=== PATIENT | male | born 2000 | race Caucasian/White ===

== ENCOUNTER 2019-09-10 21:28 | Inpatient (IN) | payer BC, OTHER ==
[2019-09-10 22:24] LABS: Hematocrit 57 % (42-52); Hemoglobin 18.8 g/dL (14.0-18.0); Mean Corpuscular HGB Conc 33 g/dL (31-36); Mean Corpuscular Hemoglobin 30 pg (27-31); Mean Corpuscular Volume 92 fL (80-94); Platelet Count 399 10^3/uL (150-450); Red Blood Count 6.19 10^6 /uL (4.18-5.48); Red Cell Distribution Width 14 % (10-15); White Blood Count 31.3 10^3/uL (3.5-10.8)
[2019-09-10 22:39] LABS: ABS Basophils 0.3 10^3/ul (0-0.2); ABS Lymphocytes 1.6 10^3/ul (1.0-4.8); ABS Monocytes 0.7 10^3/ul (0-0.8); ABS Neutrophils 28.7 10^3/ul (1.5-7.7); Eosinophil % 0.1 %; Lymphocyte % 5.1 %
[2019-09-10 22:42] LABS: ALT 17 U/L (7-52); Albumin 5.3 g/dL (3.2-5.2); Albumin/Globulin Ratio 1.6 (1-3); Alkaline Phosphatase 147 U/L (34-104); BUN/Creatinine Ratio 16.6 (8-20); Blood Urea Nitrogen 30 mg/dL (6-24); C Reactive Protein 2.35 mg/L (<8.01); Calcium 10.2 mg/dL (8.6-10.3); Chloride 93 mmol/L (101-111); EGFR African American 58.7 (>60); EGFR Non-African American 48.5 (>60); Globulin 3.3 g/dL (2-4); Glucose 498 mg/dL (70-100); Sodium 132 mmol/L (135-145); Total Protein 8.6 g/dL (6.4-8.9)
[2019-09-10 22:44] LABS: Anion Gap 30 mmol/L (2-11); CO2 Carbon Dioxide 9 mmol/L (22-32)
[2019-09-10] MEDS ORDERED: NS 0.9% 1000 ML** 1,000 ML IV ONE ×2 (23:26)
--- NOTE | 2019-09-10 23:33 | ED ---
HPI Diabetic - HPI Summary HPI Summary: Patient is a 18 year-old male presenting [facility] accompanied by father with a chief complaint of hyperglycemia. He has a history of type I diabetes with admission to [facility] 02/18/2019 with similar presentation for DKA. He endorses nausea, vomiting, and decreased oral intake. He denies diarrhea, fevers, and cough. On his way into the ED, he had 11.16 units of Humalog, administered through his pump around 2030. Symptoms rated 6/10 in severity. He had Zofran at 1700. Insulin pump removed at time of initial assessment. Past medical history includes collarbone fracture with screw/plate placement. Family history of diabetes. Nonsmoker, no alcohol use, no substance use. Medications reviewed. Allergies noted. - History Of Current Complaint Chief Complaint: EDDiabeticProb Time Seen by Provider: 09/10/19 23:25 Hx Obtained From: Patient Onset/Duration: Still Present Severity Initially: Moderate Severity Currently: Moderate Character: Alert Aggravating: Nothing Alleviating: Nothing - Insulin used Associated Signs & Symptoms: Nausea, Vomiting Related History: DM I, Insulin Pump - Allergies/Home Medications Allergies/Adverse Reactions: Allergies Allergy/AdvReac Type Severity Reaction Status Date / Time No Known Allergies Allergy Unverified 02/18/19 07:44 Home Medications: Home Medications zzInsulin inj LISPRO* [zzHumaLOG inj*] 0 units SUBCUT ACHS 11/04/13 [History Confirmed 02/18/19] Ibuprofen TAB* [Motrin TAB* 600 MG] 600 mg PO Q6H PRN #28 tab 02/11/16 [Rx Confirmed 02/18/19] Ondansetron HCl [Zofran] 4 mg PO Q6HR PRN #10 tablet 02/20/19 [Rx] PMH/Surg Hx/FS Hx/Imm Hx Endocrine/Hematology History: Reports: Hx Diabetes - TYPE 1 Denies: Hx Thyroid Disease Cardiovascular History: Denies: Hx Congestive Heart Failure, Hx Hypertension Respiratory History: Denies: Hx Asthma, Hx Chronic Obstructive Pulmonary Disease (COPD) GI History: Denies: Hx Ulcer History: Denies: Hx Renal Disease Musculoskeletal History: Reports: Hx Orthopedic Injury - L collar bone Sensory History: Denies: Hx Contacts or Glasses, Hx Hearing Aid Opthamlomology History: Denies: Hx Contacts or Glasses - Surgical History Surgical History: None Surgery Procedure, Year, and Place: none Infectious Disease History: No Infectious Disease History: Denies: Hx Clostridium Difficile, Hx Hepatitis, Hx Human Immunodeficiency Virus (HIV), Traveled Outside the [place] in Last 30 Days - Family History Known Family History: Positive: Diabetes - type I in father, aunt, grandmother, Other - Father has hx of fractured clavicle - Social History Alcohol Use: None Hx Substance Use: No Substance Use Type: Reports: None Hx Tobacco Use: No Smoking Status (MU): Never Smoked Tobacco - Additional Comments History Additional Comments: type I diabetes, family history of diabetes Review of Systems - ROS Summary Review of Systems Summary: Home Medications Medication Instructions Recorded Confirmed Type zzInsulin inj LISPRO* [zzHumaLOG 0 units SUBCUT ACHS 11/04/13 02/18/19 History inj*] Ibuprofen TAB* [Motrin TAB* 600 MG] 600 mg PO Q6H PRN #28 tab 02/11/16 02/18/19 Rx Ondansetron HCl [Zofran] 4 mg PO Q6HR PRN #10 tablet 02/20/19 Rx Negative: Fever Negative: Cough Positive: Vomiting, Nausea, Other - decreased PO intake. Negative: Diarrhea All Other Systems Reviewed And Are Negative: Yes Physical Exam - Summary Physical Exam Summary: General: Moderately ill-appearing, Well-developed, Very thin male. No acute distress. HEENT: Normocephalic, Atraumatic. Eyes: Conjuctiva normal, PERRL. Oropharynx: Clear, dry mucous membranes, (-) exudates. Neck: Soft, FROM, (-) lymphadenopathy, (-) thyromegaly, (-) JVD. Cardiovascular: Normal sinus rhythm, (-) murmur. Lungs: Clear to auscultation bilaterally (-) wheezes, (-) rales, (-) rhonchi. Abdomen: Soft, non-tender, non-distended, (-) organomegaly, normal bowel sounds. Back: (-) CVA tenderness Extremities: No edema. Skin: Warm, dry, (-) rash. Neuro: Alert and oriented x3, moves all extremities equally. No ataxia. No gait disturbance. No sensory deficit. Normal strength, normal sensation. Psychiatric: Mood normal, affect is flat. Triage Information Reviewed: Yes Vital Signs On Initial Exam: Initial Vitals Temp Pulse Resp BP Pulse Ox 97.7 F 147 20 122/80 98 09/10/19 21:47 09/10/19 21:47 09/10/19 21:47 09/10/19 21:47 09/10/19 21:47 Vital Signs Reviewed: Yes Procedures - Sedation Patient Received Moderate/Deep Sedation with Procedure: No Diagnostics - Vital Signs Vital Signs Temp Pulse Resp BP Pulse Ox 09/10/19 21:47 97.7 F 147 20 122/80 98 - Laboratory Lab Results: Lab Results 09/10/19 09/10/19 09/10/19 Range/Units 22:16 22:17 22:17 WBC 31.3 H (3.5-10.8) 10^3/uL RBC 6.19 H (4.18-5.48) 10^6 /uL Hgb 18.8 H (14.0-18.0) g/dL Hct 57 H (42-52) % MCV 92 (80-94) fL MCH 30 (27-31) pg MCHC 33 (31-36) g/dL RDW 14 (10-15) % Plt Count 399 (150-450) 10^3/uL MPV 10.0 (7.4-10.4) fL Neut % (Auto) 91.5 % Lymph % (Auto) 5.1 % Hooker % (Auto) 2.4 % Eos % (Auto) 0.1 % Baso % (Auto) 0.9 % Absolute Neuts (auto) 28.7 H (1.5-7.7) 10^3/ul Absolute Lymphs (auto) 1.6 (1.0-4.8) 10^3/ul Absolute Monos (auto) 0.7 (0-0.8) 10^3/ul Absolute Eos (auto) 0.0 (0-0.6) 10^3/ul Absolute Basos (auto) 0.3 H (0-0.2) 10^3/ul Absolute Nucleated RBC 0.0 10^3/ul Immature Gran % 12.0 H (0-9) % Neutrophils % 78.0 % Band Neutrophils % 12.0 H (0-8) % Lymphocytes % 6.0 % Monocytes % 4.0 % Nucleated RBC % 0.0 Normal RBC Morphology Normal (Normal) VBG pH (7.32-7.43) VBG pCO2 (41-51) mmHg VBG pO2 (35-45) mmHg VBG HCO3 VBG O2 Saturation (70-80) % VBG Base Excess Sodium 132 L (135-145) mmol/L Potassium TNP Chloride 93 L (101-111) mmol/L Carbon Dioxide 9 L* (22-32) mmol/L Anion Gap 30 H (2-11) mmol/L BUN 30 H (6-24) mg/dL Creatinine 1.81 H (0.67-1.17) mg/dL Est GFR ( Amer) 58.7 (>60) Est GFR (Non-Af Amer) 48.5 (>60) BUN/Creatinine Ratio 16.6 (8-20) Glucose 498 H (70-100) mg/dL Lactic Acid 3.3 H* (0.5-2.0) mmol/L Calcium 10.2 (8.6-10.3) mg/dL Total Bilirubin 0.40 (0.2-1.0) mg/dL AST TNP ALT 17 (7-52) U/L Alkaline Phosphatase 147 H (34-104) U/L C-Reactive Protein 2.35 (<8.01) mg/L Total Protein 8.6 (6.4-8.9) g/dL Albumin 5.3 H (3.2-5.2) g/dL Globulin 3.3 (2-4) g/dL Albumin/Globulin Ratio 1.6 (1-3) // Range/Units 22:17 WBC (3.5-10.8) 10^3/uL RBC (4.18-5.48) 10^6 /uL Hgb (14.0-18.0) g/dL Hct (42-52) % MCV (80-94) fL MCH (27-31) pg MCHC (31-36) g/dL RDW (10-15) % Plt Count (150-450) 10^3/uL MPV (7.4-10.4) fL Neut % (Auto) % Lymph % (Auto) % Hooker % (Auto) % Eos % (Auto) % Baso % (Auto) % Absolute Neuts (auto) (1.5-7.7) 10^3/ul Absolute Lymphs (auto) (1.0-4.8) 10^3/ul Absolute Monos (auto) (0-0.8) 10^3/ul Absolute Eos (auto) (0-0.6) 10^3/ul Absolute Basos (auto) (0-0.2) 10^3/ul Absolute Nucleated RBC 10^3/ul Immature Gran % (0-9) % Neutrophils % % Band Neutrophils % (0-8) % Lymphocytes % % Monocytes % % Nucleated RBC % Normal RBC Morphology (Normal) VBG pH <7.00 L (7.32-7.43) VBG pCO2 35 L (41-51) mmHg VBG pO2 < 38.0 (35-45) mmHg VBG HCO3 TNP VBG O2 Saturation 60.5 L (70-80) % VBG Base Excess TNP Sodium (135-145) mmol/L Potassium Chloride (101-111) mmol/L Carbon Dioxide (22-32) mmol/L Anion Gap (2-11) mmol/L BUN (6-24) mg/dL Creatinine (0.67-1.17) mg/dL Est GFR ( Amer) (>60) Est GFR (Non-Af Amer) (>60) BUN/Creatinine Ratio (8-20) Glucose (70-100) mg/dL Lactic Acid (0.5-2.0) mmol/L Calcium (8.6-10.3) mg/dL Total Bilirubin (0.2-1.0) mg/dL AST ALT (7-52) U/L Alkaline Phosphatase (34-104) U/L C-Reactive Protein (<8.01) mg/L Total Protein (6.4-8.9) g/dL Albumin (3.2-5.2) g/dL Globulin (2-4) g/dL Albumin/Globulin Ratio (1-3) Result Diagrams: 09/10/19 22:17 09/11/19 01:00 Lab Statement: Any lab studies that have been ordered have been reviewed, and results considered in the medical decision making process. Re-Evaluation - Re-Evaluation First Eval Re-Evaluation Time: 00:00 Comment: Discussed results with patient. Nausea improved. Agreeable with admission plan. Diabetic Course/Dx - Course Course Of Treatment: 18-year-old male presents with vomiting. He states he is a type I diabetic. Started vomiting this morning and hasn't been able to keep anything down. Last gave himself insulin through his insulin pump en route. 11 units. Humalog. He is moderately ill-appearing upon arrival. He is dry appearing on physical. Tachycardic. His laboratories demonstrated multiple abnormalities including elevated white count. Elevated anion gap, glucose. Decreased pH. Patient given 2 L of IV fluids. When his potassium returns normal he is given regular insulin bolus and 6 units of regular insulin per hour drip. Referred to hospitalist for admission for DKA. - Diagnoses Provider Diagnoses: DKA (diabetic ketoacidoses) - Physician Notifications Discussed Care Of Patient With: Terrell Sheppard - hospitalist Time Discussed With Above Provider: 00:20 Instructed by Provider To: Other - I discussed the patients case with Dr. Sheppard, who accepts the patient for admission. Discharge ED - Sign-Out/Discharge Documenting (check all that apply): Patient Departure - Patient accepted for admission by Dr. Sheppard. - Discharge Plan Condition: Stable Disposition: ADMITTED TO [facility] Referrals: No Primary Care Phys,NOPCP [Primary Care Provider] - - Billing Disposition and Condition Condition: STABLE Disposition: Admitted to [facility] - Attestation Statements Document Initiated by Kimibe: Yes Documenting Scribe: Seema Osuna Provider For Whom Sherry is Documenting (Include Credential): Odalis Wright MD Scribnicholas Attestation: Seema Lockett, scribed for Odalis Wright MD on 09/11/19 at 0155. Scribe Documentation Reviewed: Yes Provider Attestation: The documentation as recorded by the Seema ellison accurately reflects the service I personally performed and the decisions made by me, Odalis Wright MD Status of Scribnicholas Document: Viewed
[2019-09-10] MEDS ORDERED: Ondansetron INJ* 2 MG/ML VIAL IV ONE (23:43)
[2019-09-10] MEDS ORDERED: Acetaminophen TAB* 325 MG PO ONE (23:50)
[2019-09-10 23:53] LABS: Potassium Redraw 6.3 mmol/L (3.5-5.0)
[2019-09-10] MEDS ORDERED: Insulin REGULAR(*) 1 UNITS UNIT IV PUSH ONE (23:53)
[2019-09-11] MEDS: Insulin Infusion 100unit/100mL 100 UNIT/100 ML BAG IV ONE ×2 (00:05→10:15)
[2019-09-11 01:19] LABS: Urine Appearance Cloudy; Urine Bilirubin Negative (Negative); Urine Blood 1+ (Negative); Urine Color Yellow; Urine Glucose 3+(>=500 mg/dL) (Negative); Urine Ketones 2+ (Negative); Urine Nitrite Negative (Negative); Urine Protein 1+(30 mg/dL) (Negative); Urine Urobilinogen Negative (Negative)
[2019-09-11 01:21] LABS: Urine Bacteria 1+ (Absent); Urine Red Blood Cell Trace(0-2/hpf) (Absent); Urine White Blood Cell Absent (Absent)
[2019-09-11 01:29] LABS: BUN/Creatinine Ratio 19.5 (8-20); Calcium 8.7 mg/dL (8.6-10.3); EGFR African American 87.6 (>60); EGFR Non-African American 72.4 (>60)
[2019-09-11 01:44] LABS: Potassium 4.7 mmol/L (3.5-5.0)
[2019-09-11] MEDS ORDERED: NS 0.9% 1000 ML** 1,000 ML IV SCH (02:00)
[2019-09-11] MEDS ORDERED: Acetaminophen TAB* 325 MG PO PRN (02:05)
[2019-09-11] MEDS: D5W 1/2 NS 1000 ML BAG* 1,000 ML IV SCH ×2 (03:30→12:12)
[2019-09-11 05:12] LABS: ABS Basophils 0.2 10^3/ul (0-0.2); ABS Eosinophils 0.1 10^3/ul (0-0.6); ABS Lymphocytes 2.2 10^3/ul (1.0-4.8); ABS Monocytes 1.1 10^3/ul (0-0.8); ABS Neutrophils 17.9 10^3/ul (1.5-7.7); Eosinophil % 0.5 %; Hematocrit 46 % (42-52); Hemoglobin 16.1 g/dL (14.0-18.0); Lymphocyte % 10.4 %; Mean Corpuscular HGB Conc 35 g/dL (31-36); Mean Corpuscular Hemoglobin 31 pg (27-31); Mean Corpuscular Volume 88 fL (80-94); Mean Platelet Volume 9.5 fL (7.4-10.4); Platelet Count 304 10^3/uL (150-450); Red Blood Count 5.22 10^6 /uL (4.18-5.48); Red Cell Distribution Width 14 % (10-15); White Blood Count 21.5 10^3/uL (3.5-10.8)
[2019-09-11 05:43] LABS: BUN/Creatinine Ratio 20.4 (8-20); Calcium 8.7 mg/dL (8.6-10.3); EGFR African American 112.6 (>60); Potassium 4.2 mmol/L (3.5-5.0)
--- NOTE | 2019-09-11 05:51 | HP ---
HISTORY AND PHYSICAL: DATE OF ADMISSION: 09/11/19 HISTORY OF PRESENT ILLNESS: This is a 18-year-old male with history of type 1 diabetes presented to the ED with the father with chief complaint of nausea, vomiting excessively and hyperglycemia. The patient has a history of type 1 diabetes and on insulin pump. His last admission was 02/18/19 with similar presentation for DKA. The patient said that he was careless with his problem. He never gave himself bolus after meal, which have been going on for a while until today when he started having nausea, vomiting, decreased oral intake. He states he tried frantically to give him more insulin, but his body never responded. He cannot count how many times he vomited, but said it was excessive and started having stomach ache from retching. On his way to the ED, he had 11.16 units of Humalog administered through his pump around 2030 hours. He rated his symptoms in severity of 6/10. He further stated he also had Zofran , but it did not help. He denied diarrhea, fever, cough, chest pain. When he arrived in the ED, his insulin pump was removed. PAST MEDICAL HISTORY: Type 1 diabetes, on insulin pump. PAST SURGICAL HISTORY: Fracture of the left clavicle, with screw, plate placement. HOME MEDICATIONS: 1. The patient is on insulin pump. 2. Occasional Motrin for pain 600 mg p.o. q.6 p.r.n. 3. Occasional Zofran 4 mg p.o. q.6 p.r.n. for nausea and vomiting. ALLERGIES: He has no known drug allergies. FAMILY HISTORY: His dad has type 1 diabetes. The patient said his mother is not in the picture or not in his life, so does not know anything about her medical history. He has 2 sisters, younger, they are healthy, do not have diabetes. SOCIAL HISTORY: He denied toxic habits, but he reported that he tried drugs while in high school, but does not do it anymore. 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 REVIEW OF SYSTEMS: Positive nausea, vomiting. Positive abdominal pain. Negative for fever. Negative for headaches. Negative for chest pain and diarrhea. All other systems reviewed are negative. PHYSICAL EXAMINATION GENERAL: Awake and alert. Well-developed, not in acute distress, lying down in bed. VITAL SIGNS: Temperature 97.7, respiratory rate 20, pulse oximetry 98%, blood pressure 122/80, heart rate 147 on presentation. Repeat vitals, heart rate 110 , respiratory rate 16, blood pressure 137/78, HEENT: Normocephalic, atraumatic. Eyes: Conjunctivae normal. EOMI. PERRL. Oropharynx clear. Dry mucous membranes. No exudate. NECK: Supple. Full range of motion. No lymphadenopathy. No thyromegaly. No JVD. PULMONARY: Chest clear to auscultation bilaterally. No wheezes, no rales, no rhonchi. Good air entry. CARDIOVASCULAR: S1, S2 heard. No murmurs. Regular rate and rhythm with mild tachycardia. ABDOMEN: Soft, nontender, nondistended. No organomegaly. Normal bowel sounds in all 4 quadrants. BACK: No CVA tenderness. EXTREMITIES: No edema or cyanotic. NEUROLOGIC: Alert and oriented x3. Moves all extremities equally. No ataxia. No gait disturbance. No sensory deficit. Normal strength. Normal sensation. PSYCHIATRIC: Normal affect. Normal mood. Speech is normal. SKIN: Warm, dry, no rashes. DIAGNOSTIC STUDIES/LAB DATA: Laboratory findings: Hematology: WBC 31.3, RBC 6.19, hemoglobin 18.8, hematocrit 57, MCV 92, MCH 30, MCHC 33, RDW 14, platelet count 399. Neutrophil percentage 91.5. Chemistry: Sodium 132, potassium TNP, chloride 93, carbon dioxide , anion gap 30, BUN 30, creatinine 1.81, estimated GFR non- 48/5, BUN and creatinine ratio 16.6, glucose 498, lactic acid 3.3, calcium 10.2. Total bilirubin 0.4. AST TNP, ALT 17, alkaline phosphatase 147, C-reactive protein 2.35, total protein 8.6, albumin 5.3, globulin 3.3, albumin/globulin ratio of 1.6. Venous blood gas, pH less than 7, VBG pCO2 of 35, VBG pO2 less than 38, VBG bicarbonate TNP, VBG oxygen saturation 60.5, VBG base excess TNP. ASSESSMENT AND PLAN: A 18-year-old male with history of type 1 diabetes, on insulin pump, came in with chief complaint of hyperglycemia, nausea, and excessive vomiting and dehydration presented with diabetic ketoacidosis, will be admitted to the unit. For the diabetic ketoacidosis, DKA protocol would be initiated. The patient will be aggressively hydrated with normal saline, 2 L already given and a maintenance dose running at 150 normal saline mL/hour. The patient is placed on insulin drip and blood glucose being checked every hour and titrated as needed. Pain control with Tylenol 650 mg p.o. q.6 p.r.n., For hyperkalemia, initial dose of 6 units of insulin were given and a repeat BMP ordered. The patient will be sent to the unit for higher level of care per protocol. The patient is full code. DVT prophylaxis, SCD. Fluids and electrolytes will be repeated as needed. Followup BMP. Anion gap will be monitored. TIME SPENT: Time spent on the admission 60 minutes, of which half of the time was used for discussion with the patient the care plan. The other half was used for history and physical. The patient was counseled on the need to follow instructions and give insulin bolus after each meal. The patient is in agreement and he stated it will not happen again and he will be more careful. Father was at the bedside. Thank you very much for the opportunity to care of this claire gentleman. [id number]/[facility] #: [id number] [place]
[2019-09-11] MEDS ORDERED: Ondansetron INJ* 2 MG/ML VIAL IV PRN (06:32)
[2019-09-11 09:33] LABS: ABS Basophils 0.1 10^3/ul (0-0.2); ABS Neutrophils 14.9 10^3/ul (1.5-7.7); Eosinophil % 0.1 %; Hematocrit 43 % (42-52); Hemoglobin 15.4 g/dL (14.0-18.0); Lymphocyte % 11.1 %; Mean Corpuscular HGB Conc 35 g/dL (31-36); Mean Corpuscular Hemoglobin 31 pg (27-31); Mean Corpuscular Volume 87 fL (80-94); Mean Platelet Volume 9.2 fL (7.4-10.4); Nucleated Red Blood Cells % 0.1; Platelet Count 286 10^3/uL (150-450); Red Blood Count 4.97 10^6 /uL (4.18-5.48); Red Cell Distribution Width 14 % (10-15)
[2019-09-11] MEDS: Insulin LISPRO* 1 UNITS UNIT SUBCUT SCH ×2 (09:36→13:35)
[2019-09-11 09:50] LABS: BUN/Creatinine Ratio 19.1 (8-20); Calcium 8.7 mg/dL (8.6-10.3); EGFR African American 133.2 (>60); EGFR Non-African American 110.1 (>60); Potassium 3.9 mmol/L (3.5-5.0)
--- NOTE | 2019-09-11 13:10 | PN ---
<Esther Somers - Last Filed: 09/11/19 13:28> Date of Service: 09/11/19 Critical Care Services: Glucose went down to 200 early this morning, drip was changed to D51/2NS. One episode of vomiting overnight. No more this morning. No fever, no rigors. no URTI and UTI sx. Vital Signs: Temp Pulse Resp BP SpO2 FiO2 98.5 F 75 18 106/63 98 09/11/19 12:00 09/11/19 12:00 09/11/19 12:00 09/11/19 12:00 09/11/19 12:00 Physical Exam: Gen: alert, sitting on bed comfortably, not in distress HEENT: normacephalic. Tongue moist. Lungs: clear on auscultation, no additional sound heard Cardiac: S1, S2, no murmur. Abdomen: soft, non tender, normal BS. Extremities: decreased skin turgor, no edema Neuro: alert, oriented x4, moving all 4 extremities. Fluid Balance (Past 24 Hours): I= 2543 O= not accurately measured Intake & Output 09/09/19 09/10/19 09/11/19 09/12/19 06:59 06:59 06:59 06:59 Intake Total 2543 0 Output Total 0 Balance 2543 0 Weight 57.2 kg Intake: IV Fluids 2507 D5W 1/2 NS 312 NS (0.9%) 195 Medicated IV 36 CC - Insulin 36 Oral 0 0 Output: Urine 0 Labs: Laboratory Results - last 24 hr 09/10/19 09/10/19 09/10/19 22:16 22:17 22:17 WBC 31.3 H RBC 6.19 H Hgb 18.8 H Hct 57 H MCV 92 MCH 30 MCHC 33 RDW 14 Plt Count 399 MPV 10.0 Neut % (Auto) 91.5 Lymph % (Auto) 5.1 [place] % (Auto) 2.4 Eos % (Auto) 0.1 Baso % (Auto) 0.9 Absolute Neuts (auto) 28.7 H Absolute Lymphs (auto) 1.6 Absolute Monos (auto) 0.7 Absolute Eos (auto) 0.0 Absolute Basos (auto) 0.3 H Absolute Nucleated RBC 0.0 Immature Gran % 12.0 H Neutrophils % 78.0 Band Neutrophils % 12.0 H Lymphocytes % 6.0 Monocytes % 4.0 Nucleated RBC % 0.0 Normal RBC Morphology Normal VBG pH VBG pCO2 VBG pO2 VBG HCO3 VBG O2 Saturation VBG Base Excess Sodium 132 L Potassium TNP Chloride 93 L Carbon Dioxide 9 L* Anion Gap 30 H BUN 30 H Creatinine 1.81 H Est GFR ( Amer) 58.7 Est GFR (Non-Af Amer) 48.5 BUN/Creatinine Ratio 16.6 Glucose 498 H POC Glucose (mg/dL) Lactic Acid 3.3 H* Calcium 10.2 Magnesium Total Bilirubin 0.40 AST TNP ALT 17 Alkaline Phosphatase 147 H C-Reactive Protein 2.35 Total Protein 8.6 Albumin 5.3 H Globulin 3.3 Albumin/Globulin Ratio 1.6 Urine Color Urine Appearance Urine pH Ur Specific [place] Urine Protein Urine Ketones Urine Blood Urine Nitrate Urine Bilirubin Urine Urobilinogen Ur Leukocyte Esterase Urine WBC (Auto) Urine RBC (Auto) Urine Bacteria Hyaline Casts Urine Glucose 09/10/19 09/10/19 09/11/19 22:17 23:28 01:00 WBC RBC Hgb Hct MCV MCH MCHC RDW Plt Count MPV Neut % (Auto) Lymph % (Auto) [place] % (Auto) Eos % (Auto) Baso % (Auto) Absolute Neuts (auto) Absolute Lymphs (auto) Absolute Monos (auto) Absolute Eos (auto) Absolute Basos (auto) Absolute Nucleated RBC Immature Gran % Neutrophils % Band Neutrophils % Lymphocytes % Monocytes % Nucleated RBC % Normal RBC Morphology VBG pH <7.00 L 7.08 L VBG pCO2 35 L 30 L VBG pO2 < 38.0 42.0 VBG HCO3 TNP 8.9 L VBG O2 Saturation 60.5 L 79.3 VBG Base Excess TNP -19.9 L Sodium Potassium 6.3 H* Chloride Carbon Dioxide Anion Gap BUN Creatinine Est GFR ( Amer) Est GFR (Non-Af Amer) BUN/Creatinine Ratio Glucose POC Glucose (mg/dL) Lactic Acid Calcium Magnesium Total Bilirubin AST 16 ALT Alkaline Phosphatase C-Reactive Protein Total Protein Albumin Globulin Albumin/Globulin Ratio Urine Color Urine Appearance Urine pH Ur Specific [place] Urine Protein Urine Ketones Urine Blood Urine Nitrate Urine Bilirubin Urine Urobilinogen Ur Leukocyte Esterase Urine WBC (Auto) Urine RBC (Auto) Urine Bacteria Hyaline Casts Urine Glucose 09/11/19 09/11/1920 01:00 01:00 01:08 WBC RBC Hgb Hct MCV MCH MCHC RDW Plt Count MPV Neut % (Auto) Lymph % (Auto) [place] % (Auto) Eos % (Auto) Baso % (Auto) Absolute Neuts (auto) Absolute Lymphs (auto) Absolute Monos (auto) Absolute Eos (auto) Absolute Basos (auto) Absolute Nucleated RBC Immature Gran % Neutrophils % Band Neutrophils % Lymphocytes % Monocytes % Nucleated RBC % Normal RBC Morphology VBG pH VBG pCO2 VBG pO2 VBG HCO3 VBG O2 Saturation VBG Base Excess Sodium 137 Potassium 4.7 Chloride 106 Carbon Dioxide 8 L* Anion Gap 23 H BUN 25 H Creatinine 1.28 H Est GFR ( Amer) 87.6 Est GFR (Non-Af Amer) 72.4 BUN/Creatinine Ratio 19.5 Glucose 324 H POC Glucose (mg/dL) Lactic Acid 1.1 Calcium 8.7 Magnesium Total Bilirubin AST ALT Alkaline Phosphatase C-Reactive Protein Total Protein Albumin Globulin Albumin/Globulin Ratio Urine Color Yellow Urine Appearance Cloudy Urine pH 5.0 Ur Specific [place] 1.020 Urine Protein 1+(30 mg/dl) A Urine Ketones 2+ A Urine Blood 1+ A Urine Nitrate Negative Urine Bilirubin Negative Urine Urobilinogen Negative Ur Leukocyte Esterase Negative Urine WBC (Auto) Absent Urine RBC (Auto) Trace(0-2/hpf) Urine Bacteria 1+ A Hyaline Casts Present A Urine Glucose 3+(>=500 mg/dl) A 09/11/19 09/11/19 09/11/19 01:24 03:12 04:13 WBC RBC Hgb Hct MCV MCH MCHC RDW Plt Count MPV Neut % (Auto) Lymph % (Auto) [place] % (Auto) Eos % (Auto) Baso % (Auto) Absolute Neuts (auto) Absolute Lymphs (auto) Absolute Monos (auto) Absolute Eos (auto) Absolute Basos (auto) Absolute Nucleated RBC Immature Gran % Neutrophils % Band Neutrophils % Lymphocytes % Monocytes % Nucleated RBC % Normal RBC Morphology VBG pH VBG pCO2 VBG pO2 VBG HCO3 VBG O2 Saturation VBG Base Excess Sodium Potassium Chloride Carbon Dioxide Anion Gap BUN Creatinine Est GFR ( Amer) Est GFR (Non-Af Amer) BUN/Creatinine Ratio Glucose POC Glucose (mg/dL) 294 H 214 H 190 H Lactic Acid Calcium Magnesium Total Bilirubin AST ALT Alkaline Phosphatase C-Reactive Protein Total Protein Albumin Globulin Albumin/Globulin Ratio Urine Color Urine Appearance Urine pH Ur Specific [place] Urine Protein Urine Ketones Urine Blood Urine Nitrate Urine Bilirubin Urine Urobilinogen Ur Leukocyte Esterase Urine WBC (Auto) Urine RBC (Auto) Urine Bacteria Hyaline Casts Urine Glucose 09/11/19 09/11/19 09/11/19 05:04 05:04 05:55 WBC 21.5 H RBC 5.22 Hgb 16.1 Hct 46 MCV 88 MCH 31 MCHC 35 RDW 14 Plt Count 304 MPV 9.5 Neut % (Auto) 83.2 Lymph % (Auto) 10.4 [place] % (Auto) 5.2 Eos % (Auto) 0.5 Baso % (Auto) 0.7 Absolute Neuts (auto) 17.9 H Absolute Lymphs (auto) 2.2 Absolute Monos (auto) 1.1 H Absolute Eos (auto) 0.1 Absolute Basos (auto) 0.2 Absolute Nucleated RBC 0.0 Immature Gran % Neutrophils % Band Neutrophils % Lymphocytes % Monocytes % Nucleated RBC % 0.0 Normal RBC Morphology VBG pH VBG pCO2 VBG pO2 VBG HCO3 VBG O2 Saturation VBG Base Excess Sodium 135 Potassium 4.2 Chloride 106 Carbon Dioxide 14 L* Anion Gap 15 H BUN 21 Creatinine 1.03 Est GFR ( Amer) 112.6 Est GFR (Non-Af Amer) 93.0 BUN/Creatinine Ratio 20.4 H Glucose 203 H POC Glucose (mg/dL) 200 H Lactic Acid Calcium 8.7 Magnesium 2.0 Total Bilirubin AST ALT Alkaline Phosphatase C-Reactive Protein Total Protein Albumin Globulin Albumin/Globulin Ratio Urine Color Urine Appearance Urine pH Ur Specific [place] Urine Protein Urine Ketones Urine Blood Urine Nitrate Urine Bilirubin Urine Urobilinogen Ur Leukocyte Esterase Urine WBC (Auto) Urine RBC (Auto) Urine Bacteria Hyaline Casts Urine Glucose 09/11/19 09/11/19 09/11/19 07:35 08:25 09:19 WBC RBC Hgb Hct MCV MCH MCHC RDW Plt Count MPV Neut % (Auto) Lymph % (Auto) [place] % (Auto) Eos % (Auto) Baso % (Auto) Absolute Neuts (auto) Absolute Lymphs (auto) Absolute Monos (auto) Absolute Eos (auto) Absolute Basos (auto) Absolute Nucleated RBC Immature Gran % Neutrophils % Band Neutrophils % Lymphocytes % Monocytes % Nucleated RBC % Normal RBC Morphology VBG pH VBG pCO2 VBG pO2 VBG HCO3 VBG O2 Saturation VBG Base Excess Sodium 134 L Potassium 3.9 Chloride 105 Carbon Dioxide 17 L Anion Gap 12 H BUN 17 Creatinine 0.89 Est GFR ( Amer) 133.2 Est GFR (Non-Af Amer) 110.1 BUN/Creatinine Ratio 19.1 Glucose 176 H POC Glucose (mg/dL) 175 H 134 H Lactic Acid Calcium 8.7 Magnesium Total Bilirubin AST ALT Alkaline Phosphatase C-Reactive Protein Total Protein Albumin Globulin Albumin/Globulin Ratio Urine Color Urine Appearance Urine pH Ur Specific [place] Urine Protein Urine Ketones Urine Blood Urine Nitrate Urine Bilirubin Urine Urobilinogen Ur Leukocyte Esterase Urine WBC (Auto) Urine RBC (Auto) Urine Bacteria Hyaline Casts Urine Glucose 09/11/19 09/11/19 09/11/19 09:19 09:19 09:22 WBC 18.0 H RBC 4.97 Hgb 15.4 Hct 43 MCV 87 MCH 31 MCHC 35 RDW 14 Plt Count 286 MPV 9.2 Neut % (Auto) 82.7 Lymph % (Auto) 11.1 [place] % (Auto) 5.5 Eos % (Auto) 0.1 Baso % (Auto) 0.6 Absolute Neuts (auto) 14.9 H Absolute Lymphs (auto) 2.0 Absolute Monos (auto) 1.0 H Absolute Eos (auto) 0.0 Absolute Basos (auto) 0.1 Absolute Nucleated RBC 0.0 Immature Gran % Neutrophils % Band Neutrophils % Lymphocytes % Monocytes % Nucleated RBC % 0.1 Normal RBC Morphology VBG pH 7.30 L VBG pCO2 37 L VBG pO2 60.0 H VBG HCO3 18.9 L VBG O2 Saturation 94.6 H VBG Base Excess -7.5 L Sodium Potassium Chloride Carbon Dioxide Anion Gap BUN Creatinine Est GFR ( Amer) Est GFR (Non-Af Amer) BUN/Creatinine Ratio Glucose POC Glucose (mg/dL) 176 H Lactic Acid Calcium Magnesium Total Bilirubin AST ALT Alkaline Phosphatase C-Reactive Protein Total Protein Albumin Globulin Albumin/Globulin Ratio Urine Color Urine Appearance Urine pH Ur Specific [place] Urine Protein Urine Ketones Urine Blood Urine Nitrate Urine Bilirubin Urine Urobilinogen Ur Leukocyte Esterase Urine WBC (Auto) Urine RBC (Auto) Urine Bacteria Hyaline Casts Urine Glucose 09/11/19 09/11/19 10:14 11:18 WBC RBC Hgb Hct MCV MCH MCHC RDW Plt Count MPV Neut % (Auto) Lymph % (Auto) [place] % (Auto) Eos % (Auto) Baso % (Auto) Absolute Neuts (auto) Absolute Lymphs (auto) Absolute Monos (auto) Absolute Eos (auto) Absolute Basos (auto) Absolute Nucleated RBC Immature Gran % Neutrophils % Band Neutrophils % Lymphocytes % Monocytes % Nucleated RBC % Normal RBC Morphology VBG pH VBG pCO2 VBG pO2 VBG HCO3 VBG O2 Saturation VBG Base Excess Sodium Potassium Chloride Carbon Dioxide Anion Gap BUN Creatinine Est GFR ( Amer) Est GFR (Non-Af Amer) BUN/Creatinine Ratio Glucose POC Glucose (mg/dL) 154 H 148 H Lactic Acid Calcium Magnesium Total Bilirubin AST ALT Alkaline Phosphatase C-Reactive Protein Total Protein Albumin Globulin Albumin/Globulin Ratio Urine Color Urine Appearance Urine pH Ur Specific [place] Urine Protein Urine Ketones Urine Blood Urine Nitrate Urine Bilirubin Urine Urobilinogen Ur Leukocyte Esterase Urine WBC (Auto) Urine RBC (Auto) Urine Bacteria Hyaline Casts Urine Glucose Studies: None Nutrition: NPO for now until gap closes. Impression: 18 y/o male with T1DM on insulin pump not compliant with post prandial insulin, presented with nausea, vomiting and hyperglycemia, found to have diabetic ketoacidosis. - Diabetic ketoacidosis - leukocytosis ? reactive vs underlying infection - T1DM on insulin pump. f/u Dr. Kumar Plan: Neuro- alert, oriented -Delirium prec; avoid BDZ CVS-BP stable Resp- room air, sat ok ID- leukocytosis, improving - no obvious source of infection - awaiting blood cs and urine cs GI- -Nutrition: npo for now, can open diet after AG closes -GI prophylaxis : no Renal- -strict I/O, replete to keep K>4, Mg>2 -BMP every 4 hours Heme- Endo-Q4h BMP for now - BMP 9:30: AG 12, acidosis still exists, BG 140+ - insulin drip rate decreased, continue iv insulin and iv D51/2NS - will stop iv insulin once AG closes Musculsk- Bedrest Wounds- none Nutrition- npo for now, open diet once AG closes DVT prophylaxis: ambulatory, no DVT needed GI prophylaxis: not needed. Disposition: Patient requires Critical Care/ICU for DKA management, once his AG closely and able to tolerate diet, he can go to medical floor Patient clinical status: improved Code Status: full code Total Critical Care time is 30 minutes <James Deutsch - Last Filed: 09/11/19 21:12> Vital Signs: Temp Pulse Resp BP SpO2 FiO2 98.9 F 84 18 117/62 98 09/11/19 19:24 09/11/19 20:00 09/11/19 20:00 09/11/19 20:00 09/11/19 20:00 Physical Exam: Gen: HEENT: Lungs: Cardiac: Abdomen: Extremities: Neuro: Fluid Balance (Past 24 Hours): I= O= Net Intake & Output 09/09/19 09/10/19 09/11/19 09/12/19 06:59 06:59 06:59 06:59 Intake Total 2543 1196.5 Output Total 0 350 Balance 2543 846.5 Weight 57.2 kg Intake: IV Fluids 2507 871 D5W 1/2 NS 312 871 NS (0.9%) 195 IVPB 43 Potassium phosphate 43 Medicated IV 36 32.5 CC - Insulin 36 32.5 Oral 0 250 Output: Urine 0 350 Other: Estimated Void Large Labs: Laboratory Results - last 24 hr 09/10/19 09/10/19 09/10/19 22:16 22:17 22:17 WBC 31.3 H RBC 6.19 H Hgb 18.8 H Hct 57 H MCV 92 MCH 30 MCHC 33 RDW 14 Plt Count 399 MPV 10.0 Neut % (Auto) 91.5 Lymph % (Auto) 5.1 [place] % (Auto) 2.4 Eos % (Auto) 0.1 Baso % (Auto) 0.9 Absolute Neuts (auto) 28.7 H Absolute Lymphs (auto) 1.6 Absolute Monos (auto) 0.7 Absolute Eos (auto) 0.0 Absolute Basos (auto) 0.3 H Absolute Nucleated RBC 0.0 Immature Gran % 12.0 H Neutrophils % 78.0 Band Neutrophils % 12.0 H Lymphocytes % 6.0 Monocytes % 4.0 Nucleated RBC % 0.0 Normal RBC Morphology Normal VBG pH VBG pCO2 VBG pO2 VBG HCO3 VBG O2 Saturation VBG Base Excess Sodium 132 L Potassium TNP Chloride 93 L Carbon Dioxide 9 L* Anion Gap 30 H BUN 30 H Creatinine 1.81 H Est GFR ( Amer) 58.7 Est GFR (Non-Af Amer) 48.5 BUN/Creatinine Ratio 16.6 Glucose 498 H POC Glucose (mg/dL) Lactic Acid 3.3 H* Calcium 10.2 Phosphorus Magnesium Total Bilirubin 0.40 AST TNP ALT 17 Alkaline Phosphatase 147 H C-Reactive Protein 2.35 Total Protein 8.6 Albumin 5.3 H Globulin 3.3 Albumin/Globulin Ratio 1.6 Urine Color Urine Appearance Urine pH Ur Specific [place] Urine Protein Urine Ketones Urine Blood Urine Nitrate Urine Bilirubin Urine Urobilinogen Ur Leukocyte Esterase Urine WBC (Auto) Urine RBC (Auto) Urine Bacteria Hyaline Casts Urine Glucose 09/10/19 09/10/19 09/11/19 22:17 23:28 01:00 WBC RBC Hgb Hct MCV MCH MCHC RDW Plt Count MPV Neut % (Auto) Lymph % (Auto) [place] % (Auto) Eos % (Auto) Baso % (Auto) Absolute Neuts (auto) Absolute Lymphs (auto) Absolute Monos (auto) Absolute Eos (auto) Absolute Basos (auto) Absolute Nucleated RBC Immature Gran % Neutrophils % Band Neutrophils % Lymphocytes % Monocytes % Nucleated RBC % Normal RBC Morphology VBG pH <7.00 L 7.08 L VBG pCO2 35 L 30 L VBG pO2 < 38.0 42.0 VBG HCO3 TNP 8.9 L VBG O2 Saturation 60.5 L 79.3 VBG Base Excess TNP -19.9 L Sodium Potassium 6.3 H* Chloride Carbon Dioxide Anion Gap BUN Creatinine Est GFR ( Amer) Est GFR (Non-Af Amer) BUN/Creatinine Ratio Glucose POC Glucose (mg/dL) Lactic Acid Calcium Phosphorus Magnesium Total Bilirubin AST 16 ALT Alkaline Phosphatase C-Reactive Protein Total Protein Albumin Globulin Albumin/Globulin Ratio Urine Color Urine Appearance Urine pH Ur Specific [place] Urine Protein Urine Ketones Urine Blood Urine Nitrate Urine Bilirubin Urine Urobilinogen Ur Leukocyte Esterase Urine WBC (Auto) Urine RBC (Auto) Urine Bacteria Hyaline Casts Urine Glucose 09/11/19 09/11/19 09/11/19 01:00 01:00 01:08 WBC RBC Hgb Hct MCV MCH MCHC RDW Plt Count MPV Neut % (Auto) Lymph % (Auto) [place] % (Auto) Eos % (Auto) Baso % (Auto) Absolute Neuts (auto) Absolute Lymphs (auto) Absolute Monos (auto) Absolute Eos (auto) Absolute Basos (auto) Absolute Nucleated RBC Immature Gran % Neutrophils % Band Neutrophils % Lymphocytes % Monocytes % Nucleated RBC % Normal RBC Morphology VBG pH VBG pCO2 VBG pO2 VBG HCO3 VBG O2 Saturation VBG Base Excess Sodium 137 Potassium 4.7 Chloride 106 Carbon Dioxide 8 L* Anion Gap 23 H BUN 25 H Creatinine 1.28 H Est GFR ( Amer) 87.6 Est GFR (Non-Af Amer) 72.4 BUN/Creatinine Ratio 19.5 Glucose 324 H POC Glucose (mg/dL) Lactic Acid 1.1 Calcium 8.7 Phosphorus Magnesium Total Bilirubin AST ALT Alkaline Phosphatase C-Reactive Protein Total Protein Albumin Globulin Albumin/Globulin Ratio Urine Color Yellow Urine Appearance Cloudy Urine pH 5.0 Ur Specific [place] 1.020 Urine Protein 1+(30 mg/dl) A Urine Ketones 2+ A Urine Blood 1+ A Urine Nitrate Negative Urine Bilirubin Negative Urine Urobilinogen Negative Ur Leukocyte Esterase Negative Urine WBC (Auto) Absent Urine RBC (Auto) Trace(0-2/hpf) Urine Bacteria 1+ A Hyaline Casts Present A Urine Glucose 3+(>=500 mg/dl) A 09/11/19 09/11/19 09/11/19 01:24 03:12 04:13 WBC RBC Hgb Hct MCV MCH MCHC RDW Plt Count MPV Neut % (Auto) Lymph % (Auto) [place] % (Auto) Eos % (Auto) Baso % (Auto) Absolute Neuts (auto) Absolute Lymphs (auto) Absolute Monos (auto) Absolute Eos (auto) Absolute Basos (auto) Absolute Nucleated RBC Immature Gran % Neutrophils % Band Neutrophils % Lymphocytes % Monocytes % Nucleated RBC % Normal RBC Morphology VBG pH VBG pCO2 VBG pO2 VBG HCO3 VBG O2 Saturation VBG Base Excess Sodium Potassium Chloride Carbon Dioxide Anion Gap BUN Creatinine Est GFR ( Amer) Est GFR (Non-Af Amer) BUN/Creatinine Ratio Glucose POC Glucose (mg/dL) 294 H 214 H 190 H Lactic Acid Calcium Phosphorus Magnesium Total Bilirubin AST ALT Alkaline Phosphatase C-Reactive Protein Total Protein Albumin Globulin Albumin/Globulin Ratio Urine Color Urine Appearance Urine pH Ur Specific [place] Urine Protein Urine Ketones Urine Blood Urine Nitrate Urine Bilirubin Urine Urobilinogen Ur Leukocyte Esterase Urine WBC (Auto) Urine RBC (Auto) Urine Bacteria Hyaline Casts Urine Glucose 09/11/19 09/11/19 09/11/19 05:04 05:04 05:55 WBC 21.5 H RBC 5.22 Hgb 16.1 Hct 46 MCV 88 MCH 31 MCHC 35 RDW 14 Plt Count 304 MPV 9.5 Neut % (Auto) 83.2 Lymph % (Auto) 10.4 [place] % (Auto) 5.2 Eos % (Auto) 0.5 Baso % (Auto) 0.7 Absolute Neuts (auto) 17.9 H Absolute Lymphs (auto) 2.2 Absolute Monos (auto) 1.1 H Absolute Eos (auto) 0.1 Absolute Basos (auto) 0.2 Absolute Nucleated RBC 0.0 Immature Gran % Neutrophils % Band Neutrophils % Lymphocytes % Monocytes % Nucleated RBC % 0.0 Normal RBC Morphology VBG pH VBG pCO2 VBG pO2 VBG HCO3 VBG O2 Saturation VBG Base Excess Sodium 135 Potassium 4.2 Chloride 106 Carbon Dioxide 14 L* Anion Gap 15 H BUN 21 Creatinine 1.03 Est GFR ( Amer) 112.6 Est GFR (Non-Af Amer) 93.0 BUN/Creatinine Ratio 20.4 H Glucose 203 H POC Glucose (mg/dL) 200 H Lactic Acid Calcium 8.7 Phosphorus Magnesium 2.0 Total Bilirubin AST ALT Alkaline Phosphatase C-Reactive Protein Total Protein Albumin Globulin Albumin/Globulin Ratio Urine Color Urine Appearance Urine pH Ur Specific [place] Urine Protein Urine Ketones Urine Blood Urine Nitrate Urine Bilirubin Urine Urobilinogen Ur Leukocyte Esterase Urine WBC (Auto) Urine RBC (Auto) Urine Bacteria Hyaline Casts Urine Glucose 09/11/19 09/11/19 09/11/19 07:35 08:25 09:19 WBC RBC Hgb Hct MCV MCH MCHC RDW Plt Count MPV Neut % (Auto) Lymph % (Auto) [place] % (Auto) Eos % (Auto) Baso % (Auto) Absolute Neuts (auto) Absolute Lymphs (auto) Absolute Monos (auto) Absolute Eos (auto) Absolute Basos (auto) Absolute Nucleated RBC Immature Gran % Neutrophils % Band Neutrophils % Lymphocytes % Monocytes % Nucleated RBC % Normal RBC Morphology VBG pH VBG pCO2 VBG pO2 VBG HCO3 VBG O2 Saturation VBG Base Excess Sodium 134 L Potassium 3.9 Chloride 105 Carbon Dioxide 17 L Anion Gap 12 H BUN 17 Creatinine 0.89 Est GFR ( Amer) 133.2 Est GFR (Non-Af Amer) 110.1 BUN/Creatinine Ratio 19.1 Glucose 176 H POC Glucose (mg/dL) 175 H 134 H Lactic Acid Calcium 8.7 Phosphorus Magnesium Total Bilirubin AST ALT Alkaline Phosphatase C-Reactive Protein Total Protein Albumin Globulin Albumin/Globulin Ratio Urine Color Urine Appearance Urine pH Ur Specific [place] Urine Protein Urine Ketones Urine Blood Urine Nitrate Urine Bilirubin Urine Urobilinogen Ur Leukocyte Esterase Urine WBC (Auto) Urine RBC (Auto) Urine Bacteria Hyaline Casts Urine Glucose 09/11/19 09/11/19 09/11/19 09:19 09:19 09:22 WBC 18.0 H RBC 4.97 Hgb 15.4 Hct 43 MCV 87 MCH 31 MCHC 35 RDW 14 Plt Count 286 MPV 9.2 Neut % (Auto) 82.7 Lymph % (Auto) 11.1 [place] % (Auto) 5.5 Eos % (Auto) 0.1 Baso % (Auto) 0.6 Absolute Neuts (auto) 14.9 H Absolute Lymphs (auto) 2.0 Absolute Monos (auto) 1.0 H Absolute Eos (auto) 0.0 Absolute Basos (auto) 0.1 Absolute Nucleated RBC 0.0 Immature Gran % Neutrophils % Band Neutrophils % Lymphocytes % Monocytes % Nucleated RBC % 0.1 Normal RBC Morphology VBG pH 7.30 L VBG pCO2 37 L VBG pO2 60.0 H VBG HCO3 18.9 L VBG O2 Saturation 94.6 H VBG Base Excess -7.5 L Sodium Potassium Chloride Carbon Dioxide Anion Gap BUN Creatinine Est GFR ( Amer) Est GFR (Non-Af Amer) BUN/Creatinine Ratio Glucose POC Glucose (mg/dL) 176 H Lactic Acid Calcium Phosphorus Magnesium Total Bilirubin AST ALT Alkaline Phosphatase C-Reactive Protein Total Protein Albumin Globulin Albumin/Globulin Ratio Urine Color Urine Appearance Urine pH Ur Specific [place] Urine Protein Urine Ketones Urine Blood Urine Nitrate Urine Bilirubin Urine Urobilinogen Ur Leukocyte Esterase Urine WBC (Auto) Urine RBC (Auto) Urine Bacteria Hyaline Casts Urine Glucose 09/11/19 09/11/19 09/11/19 10:14 11:18 13:22 WBC RBC Hgb Hct MCV MCH MCHC RDW Plt Count MPV Neut % (Auto) Lymph % (Auto) [place] % (Auto) Eos % (Auto) Baso % (Auto) Absolute Neuts (auto) Absolute Lymphs (auto) Absolute Monos (auto) Absolute Eos (auto) Absolute Basos (auto) Absolute Nucleated RBC Immature Gran % Neutrophils % Band Neutrophils % Lymphocytes % Monocytes % Nucleated RBC % Normal RBC Morphology VBG pH VBG pCO2 VBG pO2 VBG HCO3 VBG O2 Saturation VBG Base Excess Sodium Potassium Chloride Carbon Dioxide Anion Gap BUN Creatinine Est GFR ( Amer) Est GFR (Non-Af Amer) BUN/Creatinine Ratio Glucose POC Glucose (mg/dL) 154 H 148 H 112 H Lactic Acid Calcium Phosphorus Magnesium Total Bilirubin AST ALT Alkaline Phosphatase C-Reactive Protein Total Protein Albumin Globulin Albumin/Globulin Ratio Urine Color Urine Appearance Urine pH Ur Specific [place] Urine Protein Urine Ketones Urine Blood Urine Nitrate Urine Bilirubin Urine Urobilinogen Ur Leukocyte Esterase Urine WBC (Auto) Urine RBC (Auto) Urine Bacteria Hyaline Casts Urine Glucose 09/11/19 09/11/19 09/11/19 13:23 14:43 15:27 WBC RBC Hgb Hct MCV MCH MCHC RDW Plt Count MPV Neut % (Auto) Lymph % (Auto) [place] % (Auto) Eos % (Auto) Baso % (Auto) Absolute Neuts (auto) Absolute Lymphs (auto) Absolute Monos (auto) Absolute Eos (auto) Absolute Basos (auto) Absolute Nucleated RBC Immature Gran % Neutrophils % Band Neutrophils % Lymphocytes % Monocytes % Nucleated RBC % Normal RBC Morphology VBG pH VBG pCO2 VBG pO2 VBG HCO3 VBG O2 Saturation VBG Base Excess Sodium 137 Potassium 3.5 Chloride 105 Carbon Dioxide 23 Anion Gap 9 BUN 15 Creatinine 0.96 Est GFR ( Amer) 122.1 Est GFR (Non-Af Amer) 100.9 BUN/Creatinine Ratio 15.6 Glucose 117 H POC Glucose (mg/dL) 150 H 274 H Lactic Acid Calcium 9.2 Phosphorus 2.4 L Magnesium 1.9 Total Bilirubin AST ALT Alkaline Phosphatase C-Reactive Protein Total Protein Albumin Globulin Albumin/Globulin Ratio Urine Color Urine Appearance Urine pH Ur Specific [place] Urine Protein Urine Ketones Urine Blood Urine Nitrate Urine Bilirubin Urine Urobilinogen Ur Leukocyte Esterase Urine WBC (Auto) Urine RBC (Auto) Urine Bacteria Hyaline Casts Urine Glucose 09/11/19 09/11/19 09/11/19 16:26 17:35 17:35 WBC RBC Hgb Hct MCV MCH MCHC RDW Plt Count MPV Neut % (Auto) Lymph % (Auto) [place] % (Auto) Eos % (Auto) Baso % (Auto) Absolute Neuts (auto) Absolute Lymphs (auto) Absolute Monos (auto) Absolute Eos (auto) Absolute Basos (auto) Absolute Nucleated RBC Immature Gran % Neutrophils % Band Neutrophils % Lymphocytes % Monocytes % Nucleated RBC % Normal RBC Morphology VBG pH VBG pCO2 VBG pO2 VBG HCO3 VBG O2 Saturation VBG Base Excess Sodium 135 Potassium 3.5 Chloride 104 Carbon Dioxide 22 Anion Gap 9 BUN 16 Creatinine 0.99 Est GFR ( Amer) 117.8 Est GFR (Non-Af Amer) 97.4 BUN/Creatinine Ratio 16.2 Glucose 259 H POC Glucose (mg/dL) 300 H 254 H Lactic Acid Calcium 8.9 Phosphorus Magnesium Total Bilirubin AST ALT Alkaline Phosphatase C-Reactive Protein Total Protein Albumin Globulin Albumin/Globulin Ratio Urine Color Urine Appearance Urine pH Ur Specific [place] Urine Protein Urine Ketones Urine Blood Urine Nitrate Urine Bilirubin Urine Urobilinogen Ur Leukocyte Esterase Urine WBC (Auto) Urine RBC (Auto) Urine Bacteria Hyaline Casts Urine Glucose 09/11/19 18:10 WBC RBC Hgb Hct MCV MCH MCHC RDW Plt Count MPV Neut % (Auto) Lymph % (Auto) [place] % (Auto) Eos % (Auto) Baso % (Auto) Absolute Neuts (auto) Absolute Lymphs (auto) Absolute Monos (auto) Absolute Eos (auto) Absolute Basos (auto) Absolute Nucleated RBC Immature Gran % Neutrophils % Band Neutrophils % Lymphocytes % Monocytes % Nucleated RBC % Normal RBC Morphology VBG pH VBG pCO2 VBG pO2 VBG HCO3 VBG O2 Saturation VBG Base Excess Sodium Potassium Chloride Carbon Dioxide Anion Gap BUN Creatinine Est GFR ( Amer) Est GFR (Non-Af Amer) BUN/Creatinine Ratio Glucose POC Glucose (mg/dL) 297 H Lactic Acid Calcium Phosphorus Magnesium Total Bilirubin AST ALT Alkaline Phosphatase C-Reactive Protein Total Protein Albumin Globulin Albumin/Globulin Ratio Urine Color Urine Appearance Urine pH Ur Specific [place] Urine Protein Urine Ketones Urine Blood Urine Nitrate Urine Bilirubin Urine Urobilinogen Ur Leukocyte Esterase Urine WBC (Auto) Urine RBC (Auto) Urine Bacteria Hyaline Casts Urine Glucose Plan: 18y M with type 1 DM; admitted with DKA after voitting at home. Suspected volume depletion Labs reviewed, not anion gap+, metabolic acidosis. Started on IVF hydration, IV insulin infusion. His AG was to be closed later today and insulin weaned off. HE was started on d5 infusio when BG dropped below 250 to further close AG. Once gap was closed he was transitioned to his insulin pump. we continued IVF. Fingersticks are in 200s. he is changing his pump and taking PO intake adequately now. family has decided he wants to go home and follow up friday with endocriologist. followup BMPs were reviewed with continued AG closure. making urine. no fevers. noted wbc 18 but he is nontoxic. no suspected sepsis. likely reactive process. no abx indicated. Teaching Attestation This service has been performed in part by a resident under the direction of a teaching physician. I, Dr James Deutsch, performed the service, or was physically present during the critical, or richey portions of the service, furnished by the resident. I participated in the management of the patient. CC 30 min James Deutsch MD
[2019-09-11 13:47] LABS: BUN/Creatinine Ratio 15.6 (8-20); Calcium 9.2 mg/dL (8.6-10.3); EGFR African American 122.1 (>60); EGFR Non-African American 100.9 (>60); Magnesium 1.9 mg/dL (1.9-2.7); Phosphorus 2.4 mg/dL (2.5-5.0); Potassium 3.5 mmol/L (3.5-5.0)
[2019-09-11] MEDS ORDERED: Potassium Phosphate IV* 5 MMOLE in NS 0.9% 250 ML* 250 ML IVPB ONE (13:49)
[2019-09-11] MEDS ORDERED: Dextrose 50% Syringe 50 ML* 25 GM/50 ML SYRINGE IV PUSH PRN (13:59)
[2019-09-11] MEDS ORDERED: Insulin LISPRO* 1 UNITS UNIT SUBCUT SCH (16:30)
[2019-09-11] MEDS ORDERED: INSULIN PUMP CONTROLLER SCH (16:30)
[2019-09-11 18:06] LABS: BUN/Creatinine Ratio 16.2 (8-20); Calcium 8.9 mg/dL (8.6-10.3); EGFR African American 117.8 (>60); EGFR Non-African American 97.4 (>60); Potassium 3.5 mmol/L (3.5-5.0)
--- NOTE | 2019-09-11 20:12 | PN ---
Progress Note - Progress Note Date of Service: 09/11/19 Note: Patient and family eager for patient to be discharged. Patient's anion gap has closed. He is tolerating oral intake well. He is well-versed in management of his insulin pump. He states that he simply suddenly became nauseas and unable to keep food down which precipitated DKA. States he has history of the same. He notes that he follows with [facility] in [place] with plan to follow up there this week. I encouraged him to speak with them and review his episodes of DKA to determine best practices for him to avoid this going forward. Encouraged him to monitor BGs closely and bolus as needed. [facility]. All questions answered and patient/ family remain eager for discharge. Plan to discharge to home now.
[2019-09-11 20:43] VITALS: BP 117/62
--- NOTE | 2019-09-11 22:51 | DS ---
HOSPITAL MEDICINE DISCHARGE SUMMARY: DATE OF ADMISSION: 09/11/19 DATE OF DISCHARGE: 09/11/19 PRIMARY CARE PHYSICIAN: None. ATTENDING PHYSICIAN: Dr. Mik Thornton * (dictation provided by Kimberly Antonio NP). PRIMARY DIAGNOSIS: Diabetic ketoacidosis, now resolved. MEDICATIONS AT THE TIME OF DISCHARGE: 1. Lispro via insulin pump. 2. Zofran p.r.n. HOSPITAL COURSE: Mr. Lakhani is a 18-year-old male with a past medical history of type 1 diabetes who presented to the hospital with concern for vomiting and hyperglycemia. In the emergency room, he was found to be in diabetic ketoacidosis. His labs showed a glucose of 498, serum bicarbonate was 9. His anion gap was 30, lactic acid was 3.3. He had a white blood cell count of 31.3 , blood gas showed a pH less than 7 with pCO2 35. He was afebrile, but tachycardic. Mr. Lakhani was admitted to the intensive care unit and treated for diabetic ketoacidosis with intravenous fluids and insulin drip. With this, he has had resolution of his anion gap. He has also had significant improvement already by this morning in his acidosis with a pH of 7.3, pCO2 37, bicarbonate 18.9. He is now off the insulin drip. He is no longer nauseous. He is tolerating intake well. He is accompanied now by his parents who were at the bedside. They are eager for him to be discharged to home now that he is feeling well. I reviewed with him the importance of following his blood glucose closely and bolusing as needed and also provided Zofran in the event that he becomes nauseous so that he can help manage this. I have encouraged his family to help monitor his diet and his insulin use to provide greater support for him. They are also going to be following up this week at the [facility] where he has additional supportive care to help him manage his diabetes going forward. Mr. Lakhani is is medically stable for discharge to home. DISPOSITION: Home. DIET: Consistent carbohydrate. ACTIVITY: As tolerated. FOLLOWUP PLANS: Please follow up with [facility] this week as he reported he had scheduled. TIME SPENT: Approximately 60 minutes was spent on the discharge of this patient , more than half the time was spent with the patient at the bedside reviewing the events leading up to this hospitalization, performing the physical examination, and reviewing his plan of care. KIMBERLY ANTONIO NP [id number]/[facility] #: [id number] [place]
== END 2019-09-11 21:25 | disposition home or self-care (01) | DRG 420 ==
LOC: ED 21:28 → ICU 09-11 01:51
PROVIDERS: ADMIT Family Medicine; ATTEND Internal Medicine
DX: E10.10 Type 1 diabetes mellitus with ketoacidosis without coma (principal); Z96.41 Presence of insulin pump (external) (internal); D72.829 Elevated white blood cell count, unspecified; E87.5 Hyperkalemia; Z91.14 Patient's other noncompliance with medication regimen; Z79.4 Long term (current) use of insulin
CPT/HCPCS: 36415; 80048; 80053; 81003; 81015; 82803; 83605; 83735; 84100; 85025; 86140; 87086; 87641; 96361; 96374; 99285; A9270-GY; J2405

== ENCOUNTER 2020-07-26 17:21 | Inpatient (IN) ==
[2020-07-26] MEDS ORDERED: NS 0.9% 1000 ml BAG 1,000 ML IV ONE ×3 (17:40→20:38)
[2020-07-26] MEDS ORDERED: Morphine 4 MG/ML VIAL (1 ml) IV ONE (17:40)
[2020-07-26] MEDS ORDERED: Ondansetron 4 mg VIAL 2 MG/ML 2 ml VIAL IV ONE (17:40)
[2020-07-26] MEDS ORDERED: LORazepam 2 mg VIAL 1 ml IM ONE (17:45)
[2020-07-26] MEDS ORDERED: Lorazepam PYXIS KEY PRN (17:45)
[2020-07-26 17:58] LABS: Hematocrit 55 % (42-52); Hemoglobin 17.6 g/dL (14.0-18.0); Mean Corpuscular HGB Conc 32 g/dL (31-36); Mean Corpuscular Hemoglobin 31 pg (27-31); Mean Corpuscular Volume 95 fL (80-94); Mean Platelet Volume 10.6 fL (7.4-10.4); Platelet Count 355 10^3/uL (150-450); Red Blood Count 5.77 10^6 /uL (4.18-5.48); Red Cell Distribution Width 14 % (10-15); White Blood Count 32.6 10^3/uL (3.5-10.8)
[2020-07-26] MEDS ORDERED: Sodium Bicarbonate 8.4% SYR 50 ml SYRINGE IV ONE (17:59)
[2020-07-26 18:01] LABS: Urine Appearance Clear; Urine Bilirubin Negative (Negative); Urine Blood Negative (Negative); Urine Color Straw; Urine Glucose 3+(>=500 mg/dL) (Negative); Urine Ketones 2+ (Negative); Urine Nitrite Negative (Negative); Urine Protein Negative (Negative); Urine Specific Gravity 1.024 (1.010-1.030); Urine Urobilinogen Negative (Negative)
[2020-07-26 18:16] LABS: ALT 15 U/L (7-52); Albumin 4.8 g/dL (3.2-5.2); Albumin/Globulin Ratio 1.7 (1-3); Alkaline Phosphatase 122 U/L (34-104); Blood Urea Nitrogen 19 mg/dL (6-24); C Reactive Protein < 1.00 mg/L (<8.01); Calcium 10.1 mg/dL (8.6-10.3); Chloride 89 mmol/L (101-111); EGFR African American 80.8 (>60); EGFR Non-African American 66.8 (>60); Globulin 2.8 g/dL (2-4); Lipase 15 U/L (11.0-82.0); Sodium 132 mmol/L (135-145); Total Protein 7.6 g/dL (6.4-8.9)
[2020-07-26 18:31] LABS: Influenza A Molecular Negative (Negative); Influenza B Molecular Negative (Negative)
[2020-07-26 18:43] LABS: CO2 Carbon Dioxide 9 mmol/L (22-32)
[2020-07-26 18:44] LABS: Glucose 823 mg/dL (70-100)
[2020-07-26 18:54] LABS: Anion Gap 34 mmol/L (2-11); Potassium 5.6 mmol/L (3.5-5.0)
[2020-07-26 18:58] LABS: AST 19 U/L (13-39)
[2020-07-26 19:00] LABS: ABS Basophils 0.1 10^3/ul (0-0.2); ABS Eosinophils 0.1 10^3/ul (0-0.6); ABS Lymphocytes 3.5 10^3/ul (1.0-4.8); ABS Monocytes 1.6 10^3/ul (0-0.8); ABS Neutrophils 27.8 10^3/ul (1.5-7.7); Eosinophil % 0.3 %; Lymphocyte % 10.5 %
[2020-07-26] MEDS ORDERED: Insulin Infusion 100unit/100mL 100 UNIT/100 ML BAG IV SCH ×2 (19:00→23:00)
[2020-07-26 19:47] LABS: Magnesium 2.3 mg/dL (1.9-2.7)
[2020-07-26] MEDS ORDERED: Morphine 2 MG/ML SYRINGE IV PRN (20:51)
[2020-07-26] MEDS ORDERED: Ondansetron 4 mg VIAL 2 MG/ML 2 ml VIAL IV PRN (20:52)
[2020-07-26 22:13] LABS: Glucose Confirmatory 798 mg/dL (70-100)
[2020-07-26 22:40] LABS: BUN/Creatinine Ratio 15.4 (8-20); Blood Urea Nitrogen 21 mg/dL (6-24); Calcium 9.2 mg/dL (8.6-10.3); Chloride 97 mmol/L (101-111); EGFR African American 80.8 (>60); EGFR Non-African American 66.8 (>60); Sodium 135 mmol/L (135-145)
[2020-07-26 22:44] LABS: CO2 Carbon Dioxide < 7 mmol/L (22-32); Glucose 797 mg/dL (70-100); Potassium 7.4 mmol/L (3.5-5.0)
[2020-07-26] MEDS ORDERED: Patiromer POWDER 8.4 GM PAK PO SCH (23:00)
[2020-07-26 23:23] LABS: Glucose Confirmatory 658 mg/dL (70-100)
[2020-07-26] MEDS ORDERED: NS 0.45% IV ONE (23:30)
[2020-07-27 00:36] LABS: BUN/Creatinine Ratio 14.7 (8-20); Blood Urea Nitrogen 20 mg/dL (6-24); Calcium 8.6 mg/dL (8.6-10.3); Chloride 105 mmol/L (101-111); EGFR African American 80.8 (>60); EGFR Non-African American 66.8 (>60); Sodium 137 mmol/L (135-145)
[2020-07-27 00:52] LABS: CO2 Carbon Dioxide 8 mmol/L (22-32); Glucose 501 mg/dL (70-100)
[2020-07-27] MEDS: D5W 1/2 NS IVFLUID 1000 ML IV SCH ×2 (03:16→08:10)
[2020-07-27 04:13] LABS: Glucose Confirmatory 490 mg/dL (70-100)
[2020-07-27 04:14] LABS: Anion Gap 24 mmol/L (2-11); Potassium 4.6 mmol/L (3.5-5.0)
[2020-07-27 08:23] LABS: BUN/Creatinine Ratio 14.2 (8-20); EGFR African American 107.8 (>60); EGFR Non-African American 89.1 (>60)
[2020-07-27 08:24] LABS: Calcium 8.8 mg/dL (8.6-10.3)
[2020-07-27] MEDS ORDERED: Insulin GLARGINE 100 un/ml 10 ml VIAL SUBCUT ONE (10:29)
[2020-07-27 12:16] LABS: BUN/Creatinine Ratio 16.4 (8-20); Blood Urea Nitrogen 11 mg/dL (6-24); CO2 Carbon Dioxide 16 mmol/L (22-32); Calcium 7.1 mg/dL (8.6-10.3); EGFR Non-African American 151.2 (>60); Glucose 165 mg/dL (70-100); Sodium 137 mmol/L (135-145)
[2020-07-27 12:17] LABS: Chloride 114 mmol/L (101-111)
[2020-07-27 12:18] LABS: Anion Gap 7 mmol/L (2-11)
[2020-07-27 13:52] LABS: Hematocrit 40 % (42-52); Hemoglobin 13.7 g/dL (14.0-18.0); Mean Corpuscular HGB Conc 35 g/dL (31-36); Mean Corpuscular Hemoglobin 30 pg (27-31); Mean Corpuscular Volume 88 fL (80-94); Mean Platelet Volume 9.2 fL (7.4-10.4); Platelet Count 209 10^3/uL (150-450); Red Blood Count 4.53 10^6 /uL (4.18-5.48); Red Cell Distribution Width 13 % (10-15); White Blood Count 19.3 10^3/uL (3.5-10.8)
[2020-07-27 14:34] LABS: ABS Basophils 0.1 10^3/ul (0-0.2); ABS Lymphocytes 2.6 10^3/ul (1.0-4.8); ABS Monocytes 0.9 10^3/ul (0-0.8); ABS Neutrophils 15.6 10^3/ul (1.5-7.7); Eosinophil % 0.2 %; Lymphocyte % 13.2 %
[2020-07-27 16:59] VITALS: BP 120/76
== END 2020-07-27 17:21 | disposition left against medical advice (07) | DRG 420 ==
LOC: ED 17:21 → ICU 20:19
PROVIDERS: ADMIT Internal Medicine Critical Care Medicine; ATTEND Internal Medicine Critical Care Medicine

== ENCOUNTER 2020-09-28 23:38 | Inpatient (IN) ==
[2020-09-29] MEDS ORDERED: Ondansetron 4 mg VIAL 2 MG/ML 2 ml VIAL IV ONE (00:13)
[2020-09-29] MEDS: NS 0.9% 1000 ml BAG 1,000 ML IV SCH ×4 (01:05→03:43)
[2020-09-29 01:17] LABS: Hematocrit 53 % (42-52); Hemoglobin 18.7 g/dL (14.0-18.0); Mean Corpuscular HGB Conc 35 g/dL (31-36); Mean Corpuscular Hemoglobin 30 pg (27-31); Mean Corpuscular Volume 87 fL (80-94); Mean Platelet Volume 9.1 fL (7.4-10.4); Platelet Count 373 10^3/uL (150-450); Red Blood Count 6.17 10^6 /uL (4.18-5.48); Red Cell Distribution Width 13 % (10-15); White Blood Count 20.3 10^3/uL (3.5-10.8)
[2020-09-29 01:33] LABS: ALT 14 U/L (7-52); AST 17 U/L (13-39); Albumin 5.3 g/dL (3.2-5.2); Albumin/Globulin Ratio 1.7 (1-3); Alkaline Phosphatase 112 U/L (34-104); BUN/Creatinine Ratio 20.3 (8-20); Blood Urea Nitrogen 24 mg/dL (6-24); C Reactive Protein 11.94 mg/L (<8.01); Calcium 10.3 mg/dL (8.6-10.3); Chloride 102 mmol/L (101-111); EGFR African American 94.3 (>60); EGFR Non-African American 77.9 (>60); Globulin 3.2 g/dL (2-4); Glucose 185 mg/dL (70-100); Potassium 4.8 mmol/L (3.5-5.0); Sodium 136 mmol/L (135-145); Total Protein 8.5 g/dL (6.4-8.9)
[2020-09-29 01:37] LABS: Anion Gap 20 mmol/L (2-11); CO2 Carbon Dioxide 14 mmol/L (22-32)
[2020-09-29] MEDS ORDERED: Insulin Infusion 100unit/100mL 100 UNIT/100 ML BAG IV ONE (01:41)
[2020-09-29 02:19] LABS: ABS Basophils 0.1 10^3/ul (0-0.2); ABS Monocytes 0.7 10^3/ul (0-0.8); ABS Neutrophils 17.5 10^3/ul (1.5-7.7); Lymphocyte % 9.8 %
[2020-09-29 02:31] LABS: Alcohol, S < 10 mg/dL (<10)
[2020-09-29] MEDS ORDERED: D5NS 0.9% 1000 ml BAG 1,000 ML IV SCH (03:30)
[2020-09-29 04:21] LABS: Potassium 3.9 mmol/L (3.5-5.0)
[2020-09-29 04:22] LABS: BUN/Creatinine Ratio 24.7 (8-20); Calcium 8.4 mg/dL (8.6-10.3); EGFR African American 130.6 (>60); EGFR Non-African American 107.9 (>60)
[2020-09-29] MEDS ORDERED: NS 0.9% 1000 ml BAG 1,000 ML IV SCH (06:15)
[2020-09-29 08:25] LABS: BUN/Creatinine Ratio 24.5 (8-20); EGFR African American 237.5 (>60); EGFR Non-African American 196.3 (>60); Potassium 2.8 mmol/L (3.5-5.0)
[2020-09-29 08:32] LABS: Calcium 5.9 mg/dL (8.6-10.3)
[2020-09-29] MEDS ORDERED: Potassium Chlor 20 meq TAB.ER PO ONE ×2 (08:33→13:38)
[2020-09-29] MEDS ORDERED: KCL 20 MEQ/100 ML IVPREMIX 20 MEQ/100 ML BAG IV ONE (08:36)
[2020-09-29] MEDS ORDERED: Insulin GLARGINE 100 un/ml 10 ml VIAL SUBCUT ONE (08:37)
[2020-09-29] MEDS ORDERED: Insulin Infusion 100unit/100mL 100 UNIT/100 ML BAG IV SCH (10:41)
[2020-09-29] MEDS ORDERED: D5LR 1000 ml BAG 1,000 ML IV SCH (11:00)
[2020-09-29 11:02] LABS: Hematocrit 42 % (42-52); Hemoglobin 14.4 g/dL (14.0-18.0); Mean Corpuscular HGB Conc 35 g/dL (31-36); Mean Corpuscular Hemoglobin 30 pg (27-31); Mean Corpuscular Volume 87 fL (80-94); Mean Platelet Volume 9.1 fL (7.4-10.4); Platelet Count 290 10^3/uL (150-450); Red Blood Count 4.81 10^6 /uL (4.18-5.48); Red Cell Distribution Width 13 % (10-15); White Blood Count 11.9 10^3/uL (3.5-10.8)
[2020-09-29 11:53] LABS: Urine Appearance Cloudy; Urine Bilirubin Negative (Negative); Urine Blood Negative (Negative); Urine Color Yellow; Urine Glucose 2+(150 mg/dL) (Negative); Urine Ketones 2+ (Negative); Urine Nitrite Negative (Negative); Urine Protein 2+(100 mg/dL) (Negative); Urine Specific Gravity 1.021 (1.002-1.030); Urine Urobilinogen Negative (Negative)
[2020-09-29 11:58] LABS: Urine Bacteria Absent (Absent); Urine Red Blood Cell Trace(0-2/hpf) (Absent); Urine Squamous Epithelial Cell Present (Absent); Urine White Blood Cell Trace(0-5/hpf) (Absent)
[2020-09-29 12:04] LABS: Urine Benzodiazepine Screen None Detected (None Detect); Urine Cannabinoids Screen None Detected (None Detect); Urine Opiates Screen None Detected (None Detect)
[2020-09-29 12:55] LABS: BUN/Creatinine Ratio 16.7 (8-20); Calcium 8.5 mg/dL (8.6-10.3); EGFR African American 139.6 (>60); EGFR Non-African American 115.3 (>60); Potassium 3.9 mmol/L (3.5-5.0)
[2020-09-29] MEDS: KCL 20 MEQ/100 ML IVPREMIX 20 MEQ/100 ML BAG IV SCH ×2 (13:49→17:03)
[2020-09-29] MEDS ORDERED: ASA-APAP-CAFFEINE ES (NF) TAB PO SCH (17:00)
[2020-09-29 17:03] LABS: Magnesium 1.7 mg/dL (1.9-2.7); Phosphorus 2.1 mg/dL (2.5-5.0)
[2020-09-29] MEDS: Butalb/Acetamin/Caff TAB 325-50-40MG PO PRN (18:19)
[2020-09-29 18:47] LABS: BUN/Creatinine Ratio 11.9 (8-20); Calcium 8.7 mg/dL (8.6-10.3); EGFR African American 139.6 (>60); EGFR Non-African American 115.3 (>60); Magnesium 1.8 mg/dL (1.9-2.7); Phosphorus 1.8 mg/dL (2.5-5.0)
[2020-09-29] MEDS ORDERED: Magnesium Sulfate IV 3 GM in NS 0.9% 100 ml BAG 100 ML IVPB ONE (18:55)
[2020-09-29] MEDS ORDERED: Potassium Phosphate IV 15 MMOLE in NS 0.9% 250 ml 250 ML IVPB ONE (19:30)
[2020-09-29] MEDS: Insulin GLARGINE 100 un/ml 10 ml VIAL SUBCUT SCH (19:46)
[2020-09-29 23:08] LABS: BUN/Creatinine Ratio 14.5 (8-20); Calcium 8.3 mg/dL (8.6-10.3); EGFR African American 141.5 (>60); Magnesium 2.5 mg/dL (1.9-2.7); Phosphorus 2.2 mg/dL (2.5-5.0)
[2020-09-29 23:29] LABS: Potassium 3.8 mmol/L (3.5-5.0)
[2020-09-30 04:49] LABS: Hematocrit 41 % (42-52); Hemoglobin 14.3 g/dL (14.0-18.0); Mean Corpuscular HGB Conc 35 g/dL (31-36); Mean Corpuscular Hemoglobin 30 pg (27-31); Mean Corpuscular Volume 87 fL (80-94); Mean Platelet Volume 8.9 fL (7.4-10.4); Platelet Count 242 10^3/uL (150-450); Red Blood Count 4.74 10^6 /uL (4.18-5.48); Red Cell Distribution Width 13 % (10-15); White Blood Count 6.8 10^3/uL (3.5-10.8)
[2020-09-30 05:03] LABS: BUN/Creatinine Ratio 15.7 (8-20); Calcium 8.6 mg/dL (8.6-10.3); EGFR African American 172.3 (>60); EGFR Non-African American 142.4 (>60); Magnesium 1.9 mg/dL (1.9-2.7); Phosphorus 3.3 mg/dL (2.5-5.0); Potassium 3.7 mmol/L (3.5-5.0)
[2020-09-30] MEDS ORDERED: Magnesium Sulfate IV 1GM/100ML 1 GM/100 ML BAG IV ONE (07:53)
[2020-09-30] MEDS: Insulin GLARGINE 100 un/ml 10 ml VIAL SUBCUT SCH (07:57)
[2020-09-30 11:08] VITALS: BP 119/74
[2020-09-30] MEDS: Butalb/Acetamin/Caff TAB 325-50-40MG PO PRN (11:12)
== END 2020-09-30 12:22 | disposition home or self-care (01) | DRG 813 ==
LOC: ED 23:38 → EDHOLD 09-29 03:19 → ICU 09-29 11:30
PROVIDERS: ADMIT Internal Medicine; ATTEND Internal Medicine

== ENCOUNTER 2020-10-07 19:28 | Inpatient (IN) ==
[2020-10-07] MEDS ORDERED: NS 0.9% 1000 ml BAG 1,000 ML IV ONE ×3 (19:38→20:56)
[2020-10-07 20:24] LABS: INR 1.04 (0.82-1.09)
[2020-10-07 20:32] LABS: ALT 12 U/L (7-52); AST 15 U/L (13-39); Albumin 4.3 g/dL (3.2-5.2); Albumin/Globulin Ratio 1.7 (1-3); Alkaline Phosphatase 116 U/L (34-104); BUN/Creatinine Ratio 16.9 (8-20); Blood Urea Nitrogen 33 mg/dL (6-24); Calcium 9.1 mg/dL (8.6-10.3); Chloride 78 mmol/L (101-111); Creatine Kinase 29 U/L (10-223); EGFR African American 52.8 (>60); EGFR Non-African American 43.6 (>60); Globulin 2.6 g/dL (2-4); Total Protein 6.9 g/dL (6.4-8.9)
[2020-10-07 20:35] LABS: CO2 Carbon Dioxide < 7 mmol/L (22-32); Potassium 8.1 mmol/L (3.5-5.0); Sodium 119 mmol/L (135-145)
[2020-10-07] MEDS ORDERED: Insulin Infusion 100unit/100mL 100 UNIT/100 ML BAG IV ONE (20:36)
[2020-10-07] MEDS ORDERED: Morphine 4 MG/ML VIAL (1 ml) IV ONE (20:45)
[2020-10-07 20:47] LABS: Influenza A Molecular Negative (Negative); Influenza B Molecular Negative (Negative)
[2020-10-07 20:48] LABS: Alcohol, S < 10 mg/dL (<10)
[2020-10-07 20:55] LABS: Glucose 1088 mg/dL (70-100)
[2020-10-07 21:07] LABS: ABS Basophils 0.5 10^3/ul (0-0.2); ABS Lymphocytes 3.7 10^3/ul (1.0-4.8); ABS Monocytes 1.9 10^3/ul (0-0.8); ABS Neutrophils 32.5 10^3/ul (1.5-7.7); Eosinophil % 0.1 %; Hematocrit 48 % (42-52); Hemoglobin 14.8 g/dL (14.0-18.0); Lymphocyte % 9.6 %; Mean Corpuscular HGB Conc 31 g/dL (31-36); Mean Corpuscular Hemoglobin 30 pg (27-31); Mean Corpuscular Volume 98 fL (80-94); Mean Platelet Volume 10.2 fL (7.4-10.4); Platelet Count 475 10^3/uL (150-450); Red Blood Count 4.96 10^6 /uL (4.18-5.48); Red Cell Distribution Width 14 % (10-15); White Blood Count 38.6 10^3/uL (3.5-10.8)
[2020-10-07] MEDS ORDERED: Iodixanol (CONTRAST) 320 MG/ML 100 ML SDV IV ONE (21:27)
[2020-10-07 21:48] LABS: Troponin I 0.01 ng/mL (<0.03)
[2020-10-07] MEDS ORDERED: CALCIUM GLUCONATE 1GM/50ML NS 1 GM/50 ML BAG IV ONE (21:57)
[2020-10-07 22:21] LABS: Urine Benzodiazepine Screen None Detected (None Detect); Urine Cannabinoids Screen None Detected (None Detect); Urine Opiates Screen None Detected (None Detect)
[2020-10-07] MEDS ORDERED: Morphine 2 MG/ML SYRINGE IV PRN (22:43)
[2020-10-07] MEDS ORDERED: Remdesivir 100 mg Vial 200 MG in NS 0.9% 250 ml 210 ML IV ONE (23:00)
[2020-10-07] MEDS ORDERED: NS 0.9% 1000 ml BAG 1,000 ML IV SCH (23:00)
[2020-10-07 23:39] LABS: BUN/Creatinine Ratio 17.1 (8-20); Blood Urea Nitrogen 31 mg/dL (6-24); Calcium 8.7 mg/dL (8.6-10.3); Chloride 90 mmol/L (101-111); EGFR African American 57.6 (>60); EGFR Non-African American 47.6 (>60); Sodium 125 mmol/L (135-145)
[2020-10-07 23:39] LABS: Urine Appearance Cloudy; Urine Bilirubin Negative (Negative); Urine Blood 1+ (Negative); Urine Color Straw; Urine Glucose 3+(>=500 mg/dL) (Negative); Urine Ketones 1+ (Negative); Urine Nitrite Negative (Negative); Urine Protein 1+(30 mg/dL) (Negative); Urine Specific Gravity 1.018 (1.002-1.030); Urine Urobilinogen Negative (Negative)
[2020-10-07 23:40] LABS: Urine Bacteria 1+ (Absent); Urine Red Blood Cell Trace(0-2/hpf) (Absent); Urine White Blood Cell Trace(0-5/hpf) (Absent)
[2020-10-07 23:58] LABS: CO2 Carbon Dioxide < 7 mmol/L (22-32); Glucose 799 mg/dL (70-100); Potassium 6.4 mmol/L (3.5-5.0)
[2020-10-08] MEDS: Enoxaparin 30 MG/0.3 ML SYR SUBCUT SCH ×3 (00:33→21:20)
[2020-10-08 01:24] LABS: Glucose Confirmatory 570 mg/dL (70-100)
[2020-10-08 02:41] LABS: BUN/Creatinine Ratio 17.4 (8-20); Blood Urea Nitrogen 26 mg/dL (6-24); Calcium 8.8 mg/dL (8.6-10.3); Chloride 101 mmol/L (101-111); EGFR Non-African American 59.5 (>60); Glucose 468 mg/dL (70-100); Glucose Confirmatory 468 mg/dL (70-100); Potassium 4.7 mmol/L (3.5-5.0); Sodium 133 mmol/L (135-145)
[2020-10-08 02:44] LABS: Anion Gap 25 mmol/L (2-11); CO2 Carbon Dioxide 7 mmol/L (22-32); Troponin I 0.04 ng/mL (<0.03)
[2020-10-08] MEDS ORDERED: D5W 1/2 NS 1000 ml BAG 1,000 ML IV SCH ×2 (04:00→06:29)
[2020-10-08] MEDS: Insulin Infusion 100unit/100mL 100 UNIT/100 ML BAG IV ONE ×2 (06:30→08:13)
[2020-10-08 06:38] LABS: Hematocrit 39 % (42-52); Hemoglobin 13.7 g/dL (14.0-18.0); Mean Corpuscular HGB Conc 35 g/dL (31-36); Mean Corpuscular Hemoglobin 31 pg (27-31); Mean Corpuscular Volume 87 fL (80-94); Mean Platelet Volume 8.8 fL (7.4-10.4); Platelet Count 292 10^3/uL (150-450); Red Blood Count 4.48 10^6 /uL (4.18-5.48); Red Cell Distribution Width 13 % (10-15); White Blood Count 25.8 10^3/uL (3.5-10.8)
[2020-10-08 06:55] LABS: ALT 12 U/L (7-52); AST 17 U/L (13-39); Albumin 3.8 g/dL (3.2-5.2); Albumin/Globulin Ratio 1.9 (1-3); Alkaline Phosphatase 90 U/L (34-104); BUN/Creatinine Ratio 18.3 (8-20); Blood Urea Nitrogen 22 mg/dL (6-24); Calcium 8.5 mg/dL (8.6-10.3); Chloride 107 mmol/L (101-111); EGFR African American 92.5 (>60); EGFR Non-African American 76.4 (>60); Glucose 252 mg/dL (70-100); Sodium 135 mmol/L (135-145); Total Protein 5.8 g/dL (6.4-8.9)
[2020-10-08 06:57] LABS: Anion Gap 15 mmol/L (2-11); CO2 Carbon Dioxide 13 mmol/L (22-32)
[2020-10-08 07:08] LABS: ABS Basophils 0.2 10^3/ul (0-0.2); ABS Lymphocytes 3.1 10^3/ul (1.0-4.8); ABS Monocytes 2.1 10^3/ul (0-0.8); ABS Neutrophils 20.3 10^3/ul (1.5-7.7); Lymphocyte % 12.2 %
[2020-10-08 08:13] LABS: Troponin I 0.04 ng/mL (<0.03)
[2020-10-08 08:17] LABS: LDH 193 U/L (140-271)
[2020-10-08 08:36] LABS: Ferritin 295.1 ng/mL (24-336)
[2020-10-08 11:11] LABS: Calcium 8.4 mg/dL (8.6-10.3); EGFR African American 114.1 (>60); EGFR Non-African American 94.3 (>60); Potassium 3.9 mmol/L (3.5-5.0)
[2020-10-08] MEDS ORDERED: Insulin GLARGINE 100 un/ml 10 ml VIAL SUBCUT ONE (11:49)
[2020-10-08] MEDS ORDERED: Dextrose 50% Syringe 50 ml 25 GM/50 ML SYRINGE IV PUSH PRN (11:50)
[2020-10-08 15:22] LABS: Calcium 8.4 mg/dL (8.6-10.3); EGFR African American 122.6 (>60); EGFR Non-African American 101.3 (>60); Potassium 3.3 mmol/L (3.5-5.0)
[2020-10-08] MEDS ORDERED: Potassium Chlor 20 meq TAB.ER PO ONE (16:10)
[2020-10-08] MEDS: Remdesivir 100 mg Vial 100 MG in NS 0.9% 250 ml 230 ML IV SCH (21:20)
[2020-10-09] MEDS ORDERED: Lactated Ringers 1000 ml BAG 1,000 ML IV ONE (02:09)
[2020-10-09] MEDS ORDERED: Ondansetron 4 mg VIAL 2 MG/ML 2 ml VIAL IV PRN (02:18)
[2020-10-09] MEDS ORDERED: Ondansetron 4 mg VIAL 2 MG/ML 2 ml VIAL ONE (02:19)
[2020-10-09 06:07] LABS: ABS Lymphocytes 2.1 10^3/ul (1.0-4.8); ABS Monocytes 0.5 10^3/ul (0-0.8); ABS Neutrophils 6.8 10^3/ul (1.5-7.7); Eosinophil % 0.2 %; Hematocrit 37 % (42-52); Hemoglobin 12.7 g/dL (14.0-18.0); Lymphocyte % 22.5 %; Mean Corpuscular HGB Conc 35 g/dL (31-36); Mean Corpuscular Hemoglobin 30 pg (27-31); Mean Corpuscular Volume 88 fL (80-94); Mean Platelet Volume 8.5 fL (7.4-10.4); Platelet Count 194 10^3/uL (150-450); Red Blood Count 4.21 10^6 /uL (4.18-5.48); Red Cell Distribution Width 14 % (10-15); White Blood Count 9.5 10^3/uL (3.5-10.8)
[2020-10-09 06:24] LABS: BUN/Creatinine Ratio 16.5 (8-20); EGFR African American 137.7 (>60); EGFR Non-African American 113.8 (>60); Potassium 4.1 mmol/L (3.5-5.0)
[2020-10-09] MEDS ORDERED: Dextrose 50% Syringe 50 ml 25 GM/50 ML SYRINGE IV PUSH PRN (08:01)
[2020-10-09] MEDS: Insulin GLARGINE 100 un/ml 10 ml VIAL SUBCUT SCH (08:45)
[2020-10-09] MEDS: Enoxaparin 30 MG/0.3 ML SYR SUBCUT SCH ×2 (08:45→20:00)
[2020-10-09] MEDS ORDERED: cefTRIAXone 1 gm/50 mL NS BAG 1 GM/50 ML BAG IVPB SCH (11:00)
[2020-10-09 18:23] LABS: Calcium 8.7 mg/dL (8.6-10.3); EGFR African American 147.7 (>60); Potassium 3.1 mmol/L (3.5-5.0)
[2020-10-09] MEDS ORDERED: Potassium Chlor 20 meq TAB.ER PO ONE ×2 (18:27→21:00)
[2020-10-09] MEDS ORDERED: Potassium Chloride LIQUID 20 MEQ/15 ML LIQUID PO ONE (18:34)
[2020-10-09] MEDS: KCL 20 MEQ/100 ML IVPREMIX 20 MEQ/100 ML BAG IV SCH ×2 (19:12→22:14)
[2020-10-09] MEDS: Remdesivir 100 mg Vial 100 MG in NS 0.9% 250 ml 230 ML IV SCH (21:22)
[2020-10-10 03:33] LABS: ABS Basophils 0.1 10^3/ul (0-0.2); ABS Eosinophils 0.1 10^3/ul (0-0.6); ABS Lymphocytes 2.2 10^3/ul (1.0-4.8); ABS Monocytes 0.3 10^3/ul (0-0.8); ABS Neutrophils 2.5 10^3/ul (1.5-7.7); Eosinophil % 1.3 %; Hematocrit 35 % (42-52); Hemoglobin 12.3 g/dL (14.0-18.0); Lymphocyte % 42.3 %; Mean Corpuscular HGB Conc 35 g/dL (31-36); Mean Corpuscular Hemoglobin 31 pg (27-31); Mean Corpuscular Volume 87 fL (80-94); Mean Platelet Volume 8.5 fL (7.4-10.4); Platelet Count 171 10^3/uL (150-450); Red Blood Count 4.03 10^6 /uL (4.18-5.48); Red Cell Distribution Width 14 % (10-15); White Blood Count 5.1 10^3/uL (3.5-10.8)
[2020-10-10 03:49] LABS: BUN/Creatinine Ratio 14.3 (8-20); Calcium 8.4 mg/dL (8.6-10.3); EGFR African American 194.5 (>60); EGFR Non-African American 160.8 (>60); Magnesium 1.8 mg/dL (1.9-2.7); Phosphorus 2.7 mg/dL (2.5-5.0); Potassium 3.7 mmol/L (3.5-5.0)
[2020-10-10] MEDS ORDERED: Magnesium Sulfate 2 gm BAG 2 GM/50 ML BAG IVPB ONE (07:28)
[2020-10-10] MEDS ORDERED: Potassium Chlor 20 meq TAB.ER PO ONE ×2 (07:28→08:19)
[2020-10-10] MEDS: Enoxaparin 30 MG/0.3 ML SYR SUBCUT SCH (08:26)
[2020-10-10] MEDS: Insulin GLARGINE 100 un/ml 10 ml VIAL SUBCUT SCH (09:00)
[2020-10-10] MEDS ORDERED: Insulin LISPRO* FOR INSULIN PUMP SUBCUT SCH (11:00)
[2020-10-10] MEDS ORDERED: cefTRIAXone 1 gm/50 mL NS BAG 1 GM/50 ML BAG IVPB SCH (14:00)
[2020-10-10 20:02] LABS: Glucose Confirmatory 466 mg/dL (70-100)
[2020-10-10] MEDS ORDERED: Insulin GLARGINE 100 un/ml 10 ml VIAL SUBCUT ONE (20:41)
[2020-10-10] MEDS: Remdesivir 100 mg Vial 100 MG in NS 0.9% 250 ml 230 ML IV SCH (21:23)
[2020-10-11] MEDS ORDERED: Ondansetron ODT 4 mg TAB 4 MG TAB SL PRN (07:33)
[2020-10-11 08:22] LABS: ABS Eosinophils 0.1 10^3/ul (0-0.6); ABS Lymphocytes 1.5 10^3/ul (1.0-4.8); ABS Monocytes 0.2 10^3/ul (0-0.8); ABS Neutrophils 1.9 10^3/ul (1.5-7.7); Eosinophil % 1.9 %; Hematocrit 45 % (42-52); Hemoglobin 15.7 g/dL (14.0-18.0); Lymphocyte % 40.8 %; Mean Corpuscular HGB Conc 35 g/dL (31-36); Mean Corpuscular Hemoglobin 31 pg (27-31); Mean Corpuscular Volume 88 fL (80-94); Mean Platelet Volume 8.7 fL (7.4-10.4); Nucleated Red Blood Cells % 0.1; Platelet Count 185 10^3/uL (150-450); Red Blood Count 5.11 10^6 /uL (4.18-5.48); Red Cell Distribution Width 14 % (10-15); White Blood Count 3.8 10^3/uL (3.5-10.8)
[2020-10-11 08:25] LABS: BUN/Creatinine Ratio 19.5 (8-20); Calcium 9.5 mg/dL (8.6-10.3); EGFR African American 143.5 (>60); EGFR Non-African American 118.6 (>60); Potassium 4.6 mmol/L (3.5-5.0)
[2020-10-12 06:42] LABS: Albumin 4.1 g/dL (3.2-5.2); Albumin/Globulin Ratio 1.6 (1-3); BUN/Creatinine Ratio 20.9 (8-20); Calcium 9.5 mg/dL (8.6-10.3); EGFR African American 181.2 (>60); EGFR Non-African American 149.7 (>60); Globulin 2.5 g/dL (2-4); Total Bilirubin 0.6 mg/dL (0.2-1.0); Total Protein 6.6 g/dL (6.4-8.9)
[2020-10-12 09:23] VITALS: BP 129/79
== END 2020-10-12 10:30 | disposition home or self-care (01) | DRG 813 ==
LOC: ED 19:28 → ICU 22:02 → MED 10-10 11:40
PROVIDERS: ADMIT Internal Medicine; ATTEND Internal Medicine

== ENCOUNTER 2021-05-08 16:07 | Inpatient (IN) ==
[2021-05-08] MEDS ORDERED: NS 0.9% 1000 ml BAG 2,000 ML IV ONE (16:29)
[2021-05-08 16:56] LABS: Hematocrit 56 % (42-52); Hemoglobin 17.8 g/dL (14.0-18.0); Mean Corpuscular HGB Conc 32 g/dL (31-36); Mean Corpuscular Hemoglobin 31 pg (27-31); Mean Corpuscular Volume 95 fL (80-94); Mean Platelet Volume 10.2 fL (7.4-10.4); Platelet Count 372 10^3/uL (150-450); Red Blood Count 5.83 10^6 /uL (4.18-5.48); Red Cell Distribution Width 14 % (10-15); White Blood Count 27.9 10^3/uL (3.5-10.8)
[2021-05-08] MEDS ORDERED: Ondansetron 4 mg VIAL 2 MG/ML 2 ml VIAL IV ONE (17:02)
[2021-05-08 17:14] LABS: Albumin 5.4 g/dL (3.2-5.2); Albumin/Globulin Ratio 1.6 (1-3); C Reactive Protein 11.2 mg/L (<8.01); Globulin 3.4 g/dL (2-4); Total Bilirubin 0.5 mg/dL (0.2-1.0); Total Protein 8.8 g/dL (6.4-8.9)
[2021-05-08] MEDS: Insulin Infusion 100unit/100mL 100 UNIT/100 ML BAG IV ONE ×2 (17:23→20:22)
[2021-05-08] MEDS ORDERED: NS 0.9% 1000 ml BAG 1,000 ML IV SCH (17:30)
[2021-05-08 17:53] LABS: ABS Lymphocytes 1.5 10^3/ul (1.0-4.8); ABS Monocytes 1.1 10^3/ul (0-0.8); ABS Neutrophils 25.2 10^3/ul (1.5-7.7); Lymphocyte % 5.4 %; Nucleated Red Blood Cells % 0.1
[2021-05-08 17:55] LABS: Magnesium 2.7 mg/dL (1.9-2.7)
[2021-05-08 17:58] LABS: Potassium 6.3 mmol/L (3.5-5.0)
[2021-05-08] MEDS ORDERED: Ondansetron 4 mg VIAL 2 MG/ML 2 ml VIAL IV PRN (18:22)
[2021-05-08] MEDS ORDERED: Lactated Ringers 1000 ml BAG 1,000 ML IV SCH (19:00)
[2021-05-08 19:08] LABS: Blood Urea Nitrogen 30 mg/dL (6-24); Calcium 8.3 mg/dL (8.6-10.3); Chloride 100 mmol/L (101-111); Sodium 135 mmol/L (135-145)
[2021-05-08 19:16] LABS: CO2 Carbon Dioxide 7 mmol/L (22-32); Glucose 507 mg/dL (70-100); Glucose Confirmatory 507 mg/dL (70-100)
[2021-05-08 19:29] LABS: Anion Gap 28 mmol/L (2-11)
[2021-05-08 19:48] LABS: PO2 Arterial 114 mmHg (80-100)
[2021-05-08 19:53] LABS: PCO2 Arterial <20 mmHg (35-45)
[2021-05-08 19:55] LABS: Rapid COVID-19 Molecular Undetected (Undetected)
[2021-05-08 19:58] LABS: Urine Appearance Clear; Urine Bilirubin Negative (Negative); Urine Blood 2+ (Negative); Urine Color Straw; Urine Glucose 3+(>=500 mg/dL) (Negative); Urine Ketones 2+ (Negative); Urine Nitrite Negative (Negative); Urine Protein 1+(30 mg/dL) (Negative); Urine Specific Gravity 1.021 (1.002-1.030); Urine Urobilinogen Negative (Negative)
[2021-05-08] MEDS ORDERED: Insulin Infusion 100unit/100mL 100 UNIT/100 ML BAG IV SCH ×2 (20:00)
[2021-05-08 20:03] LABS: Urine Bacteria Absent (Absent); Urine Red Blood Cell Absent (Absent); Urine White Blood Cell Trace(0-5/hpf) (Absent)
[2021-05-08 20:10] LABS: Calcium 8.7 mg/dL (8.6-10.3)
[2021-05-08 20:32] LABS: Potassium 4.5 mmol/L (3.5-5.0)
[2021-05-08] MEDS ORDERED: Potassium Chloride IV 20 MEQ in Lactated Ringers 1000 ml BAG 1,000 ML IVPB SCH (21:00)
[2021-05-08] MEDS ORDERED: D5LR 1000 ml BAG 1,000 ML IV SCH (23:45)
[2021-05-08 23:46] LABS: Calcium 8.9 mg/dL (8.6-10.3)
[2021-05-09 00:10] LABS: Potassium 4.8 mmol/L (3.5-5.0)
[2021-05-09] MEDS ORDERED: Lactated Ringers 1000 ml BAG 1,000 ML IV SCH (01:00)
[2021-05-09] MEDS ORDERED: D5W 1000 ml BAG 1,000 ML IV SCH (01:00)
[2021-05-09 03:45] LABS: Hematocrit 45 % (42-52); Hemoglobin 15.1 g/dL (14.0-18.0); Mean Corpuscular HGB Conc 34 g/dL (31-36); Mean Corpuscular Hemoglobin 30 pg (27-31); Mean Corpuscular Volume 90 fL (80-94); Platelet Count 249 10^3/uL (150-450); Red Cell Distribution Width 13 % (10-15); White Blood Count 19.8 10^3/uL (3.5-10.8)
[2021-05-09 03:57] LABS: Calcium 8.5 mg/dL (8.6-10.3); Magnesium 2.1 mg/dL (1.9-2.7); Phosphorus 2.1 mg/dL (2.5-5.0); Potassium 4.2 mmol/L (3.5-5.0)
[2021-05-09] MEDS ORDERED: Insulin GLARGINE 100 un/ml 10 ml VIAL SUBCUT ONE (04:03)
[2021-05-09 04:17] LABS: ABS Basophils 0.1 10^3/ul (0-0.2); ABS Lymphocytes 2.1 10^3/ul (1.0-4.8); ABS Monocytes 1.3 10^3/ul (0-0.8); ABS Neutrophils 16.3 10^3/ul (1.5-7.7); Eosinophil % 0.1 %; Lymphocyte % 10.4 %
[2021-05-09] MEDS ORDERED: Dextrose 50% Syringe 50 ml 25 GM/50 ML SYRINGE IV PUSH PRN (04:56)
[2021-05-09] MEDS ORDERED: Sodium Phosphate IV 10 MMOLE in NS 0.9% 250 ml 250 ML IV ONE (04:58)
[2021-05-09 08:27] LABS: Calcium 8.6 mg/dL (8.6-10.3); Potassium 3.9 mmol/L (3.5-5.0)
[2021-05-09 15:28] VITALS: BP 124/68
== END 2021-05-09 15:25 | disposition home or self-care (01) | DRG 813 ==
LOC: ED 16:07 → EDHOLD 18:26 → ICU 19:22
PROVIDERS: ADMIT Internal Medicine Critical Care Medicine; ATTEND Internal Medicine Critical Care Medicine

== ENCOUNTER 2021-11-27 15:58 | Inpatient (IN) ==
[2021-11-27] MEDS ORDERED: Lactated Ringers 1000 ml BAG 1,000 ML IV SCH (17:00)
[2021-11-27 17:29] LABS: Venous Bicarbonate HCO3 14.1 mmol/L (24-28)
[2021-11-27 17:32] LABS: ABS Lymphocytes 1.3 10^3/ul (1.0-4.8); ABS Monocytes 0.8 10^3/ul (0-0.8); ABS Neutrophils 16.5 10^3/ul (1.5-7.7); Eosinophil % 0.2 %; Hematocrit 57 % (42-52); Hemoglobin 18.7 g/dL (14.0-18.0); Lymphocyte % 6.9 %; Mean Corpuscular HGB Conc 33 g/dL (31-36); Mean Corpuscular Hemoglobin 30 pg (27-31); Mean Corpuscular Volume 90 fL (80-94); Mean Platelet Volume 9.9 fL (7.4-10.4); Nucleated Red Blood Cells % 0.1; Platelet Count 292 10^3/uL (150-450); Red Blood Count 6.31 10^6 /uL (4.18-5.48); Red Cell Distribution Width 14 % (10-15); White Blood Count 18.7 10^3/uL (3.5-10.8)
[2021-11-27] MEDS ORDERED: Ondansetron 4 mg VIAL 2 MG/ML 2 ml VIAL IV ONE (17:39)
[2021-11-27] MEDS ORDERED: NORMOSOL-R pH 7.4 1000 mL BAG 1,000 ML IV SCH ×3 (18:00→22:00)
[2021-11-27] MEDS ORDERED: Dextrose 50% Syringe 50 ml 25 GM/50 ML SYRINGE IV PUSH PRN (18:58)
[2021-11-27] MEDS ORDERED: NORMOSOL-R pH 7.4 1000 mL BAG 1,000 ML IV ONE (18:58)
[2021-11-27 19:15] LABS: Urine Appearance Clear; Urine Bilirubin Negative (Negative); Urine Blood Negative (Negative); Urine Color Straw; Urine Glucose 3+(>=500 mg/dL) (Negative); Urine Ketones 2+ (Negative); Urine Nitrite Negative (Negative); Urine Protein Negative (Negative); Urine Specific Gravity 1.025 (1.002-1.030); Urine Urobilinogen Negative (Negative)
[2021-11-27 19:21] LABS: Albumin 5.4 g/dL (3.2-5.2); CO2 Carbon Dioxide 17 mmol/L (22-32); Calcium 10.7 mg/dL (8.6-10.3); Chloride 90 mmol/L (101-111); Sodium 134 mmol/L (135-145)
[2021-11-27 19:22] LABS: Anion Gap 27 mmol/L (2-11); Potassium 5.1 mmol/L (3.5-5.0)
[2021-11-27 19:27] LABS: ALT 21 U/L (7-52); AST 23 U/L (13-39); Albumin/Globulin Ratio 1.9 (1-3); Alkaline Phosphatase 119 U/L (35-149); Blood Urea Nitrogen 19 mg/dL (6-24); C Reactive Protein < 1.00 mg/L (<8.01); Globulin 2.8 g/dL (2-4); Glucose 442 mg/dL (70-100); Total Protein 8.2 g/dL (6.4-8.9); eGFR CKD-EPI 83.5 (>60)
[2021-11-27 19:29] LABS: Magnesium 2.2 mg/dL (1.9-2.7)
[2021-11-27 19:35] LABS: Phosphorus 6.2 mg/dL (2.5-5.0)
[2021-11-27] MEDS ORDERED: Insulin Infusion 100unit/100mL 100 UNIT/100 ML BAG IV SCH (20:30)
[2021-11-27] MEDS ORDERED: Ondansetron 4 mg VIAL 2 MG/ML 2 ml VIAL IV PRN (21:43)
[2021-11-27] MEDS: D5NS 0.9% 1000 ml BAG 1,000 ML IV SCH (22:13)
[2021-11-27] MEDS: NS 0.9% 1000 ml BAG 1,000 ML IV SCH (22:14)
[2021-11-27 22:38] LABS: Blood Urea Nitrogen 15 mg/dL (6-24); CO2 Carbon Dioxide 18 mmol/L (22-32); Calcium 9.3 mg/dL (8.6-10.3); Chloride 101 mmol/L (101-111); Glucose 202 mg/dL (70-100); Sodium 134 mmol/L (135-145); eGFR CKD-EPI 116.1 (>60)
[2021-11-27 23:14] LABS: Anion Gap 15 mmol/L (2-11)
[2021-11-28] MEDS: D5NS 0.9% 1000 ml BAG 1,000 ML IV SCH (01:30)
[2021-11-28 02:55] LABS: Calcium 8.8 mg/dL (8.6-10.3); Potassium 4.1 mmol/L (3.5-5.0); eGFR CKD-EPI 126.9 (>60)
[2021-11-28 06:09] LABS: ABS Eosinophils 0.2 10^3/ul (0-0.6); ABS Lymphocytes 2.7 10^3/ul (1.0-4.8); ABS Monocytes 0.6 10^3/ul (0-0.8); ABS Neutrophils 9.8 10^3/ul (1.5-7.7); ABS Nucleated RBC 0.1 10^3/ul; Eosinophil % 1.6 %; Hematocrit 45 % (42-52); Hemoglobin 15.4 g/dL (14.0-18.0); Lymphocyte % 20.1 %; Mean Corpuscular HGB Conc 34 g/dL (31-36); Mean Corpuscular Hemoglobin 30 pg (27-31); Mean Corpuscular Volume 88 fL (80-94); Mean Platelet Volume 9.2 fL (7.4-10.4); Nucleated Red Blood Cells % 0.4; Platelet Count 230 10^3/uL (150-450); Red Blood Count 5.06 10^6 /uL (4.18-5.48); Red Cell Distribution Width 14 % (10-15); White Blood Count 13.4 10^3/uL (3.5-10.8)
[2021-11-28] MEDS: NS 0.9% 1000 ml BAG 1,000 ML IV SCH (06:43)
[2021-11-28 06:56] LABS: Calcium 8.7 mg/dL (8.6-10.3); Potassium 3.8 mmol/L (3.5-5.0); eGFR CKD-EPI 122.2 (>60)
[2021-11-28 09:31] VITALS: BP 117/71
== END 2021-11-28 12:00 | disposition home or self-care (01) | DRG 420 ==
LOC: ED 15:58 → EDHOLD 21:39 → SUATTDRO 21:39 → ICU 22:55
PROVIDERS: ADMIT Hospitalist; ATTEND Surgery Surgical Critical Care

== ENCOUNTER 2022-05-19 03:34 | Inpatient (IN) ==
[2022-05-19] MEDS ORDERED: Lactated Ringers 1000 ml BAG 1,000 ML IV ONE ×3 (03:44→04:47)
[2022-05-19] MEDS ORDERED: Acetaminophen IV 1 GM/100ML 1,000 MG/100 ML BAG IV ONE (03:45)
[2022-05-19] MEDS ORDERED: Metoclopramide 5 MG/ML VIAL (10 mg) IV ONE (03:45)
[2022-05-19 04:17] LABS: Venous Bicarbonate HCO3 17.8 mmol/L (24-28)
[2022-05-19 04:18] LABS: ABS Basophils 0.1 10^3/ul (0-0.2); ABS Eosinophils 0.1 10^3/ul (0-0.6); ABS Lymphocytes 1.4 10^3/ul (1.0-4.8); ABS Monocytes 0.7 10^3/ul (0-0.8); ABS Neutrophils 17.8 10^3/ul (1.5-7.7); Eosinophil % 0.4 %; Hematocrit 44 % (42-52); Hemoglobin 14.7 g/dL (14.0-18.0); Lymphocyte % 6.8 %; Mean Corpuscular HGB Conc 33 g/dL (31-36); Mean Corpuscular Hemoglobin 30 pg (27-31); Mean Corpuscular Volume 90 fL (80-94); Mean Platelet Volume 9.4 fL (7.4-10.4); Platelet Count 228 10^3/uL (150-450); Red Blood Count 4.93 10^6 /uL (4.18-5.48); Red Cell Distribution Width 13 % (10-15); White Blood Count 19.9 10^3/uL (3.5-10.8)
[2022-05-19 04:42] LABS: High Sens Troponin Baseline < 3 pg/mL (<20)
[2022-05-19 04:46] LABS: ALT 14 U/L (7-52); AST 15 U/L (13-39); Albumin 4.5 g/dL (3.2-5.2); Albumin/Globulin Ratio 1.8 (1-3); Alkaline Phosphatase 90 U/L (35-149); Anion Gap 20 mmol/L (2-11); Blood Urea Nitrogen 19 mg/dL (6-24); CO2 Carbon Dioxide 19 mmol/L (22-32); Calcium 9.8 mg/dL (8.6-10.3); Chloride 101 mmol/L (101-111); Creatine Kinase 79 U/L (10-223); Globulin 2.5 g/dL (2-4); Glucose 348 mg/dL (70-100); Magnesium 1.9 mg/dL (1.9-2.7); Phosphorus 4.1 mg/dL (2.5-5.0); Potassium 4.5 mmol/L (3.5-5.0); Sodium 140 mmol/L (135-145); eGFR CKD-EPI 120.6 (>60)
[2022-05-19] MEDS ORDERED: Dextrose 50% Syringe 50 ml 25 GM/50 ML SYRINGE IV PUSH PRN ×2 (04:47→09:48)
[2022-05-19] MEDS ORDERED: Insulin Infusion 100unit/100mL 100 UNIT/100 ML BAG IV SCH (05:00)
[2022-05-19] MEDS ORDERED: Potassium Chloride IV 40 MEQ in Lactated Ringers 1000 ml BAG 1,000 ML IVPB SCH (05:00)
[2022-05-19] MEDS ORDERED: Ondansetron 4 mg VIAL 2 MG/ML 2 ml VIAL IV PRN (05:04)
[2022-05-19 05:54] LABS: High Sensitivity Troponin 1 Hr < 3 pg/mL (<20)
[2022-05-19] MEDS ORDERED: D5W NS 0.9% 40Meq KCL 1000 ml 1,000 ML IV SCH (07:00)
[2022-05-19 09:46] LABS: Magnesium 1.9 mg/dL (1.9-2.7); Phosphorus 3.2 mg/dL (2.5-5.0); eGFR CKD-EPI 139.3 (>60)
[2022-05-19 10:07] VITALS: BP 109/54
[2022-05-19] MEDS ORDERED: Potassium Chlor 20 meq TAB.ER PO ONE (10:56)
[2022-05-19] MEDS ORDERED: Insulin GLARGINE 100 un/ml 10 ml VIAL SUBCUT SCH (11:00)
[2022-05-19] MEDS ORDERED: Insulin GLARGINE 100 un/ml 10 ml VIAL ONE (11:00)
== END 2022-05-19 12:30 | disposition left against medical advice (07) | DRG 420 ==
LOC: ED 03:34 → EDHOLD 05:04 → ICU 08:34
PROVIDERS: ADMIT Student in an Organized Health Care Education/Training Program; ATTEND Student in an Organized Health Care Education/Training Program